=== PATIENT | female | born 1995 | race Caucasian/White ===

== ENCOUNTER 2024-11-10 10:26 | Outpatient (AMB) | payer BC, SELFPAY ==
[2024-11-10 10:45] VITALS: BP 124/85; PULSE 95; RESP 18; TEMP 36.6; O2SAT 95; BMI 36.4
--- NOTE | 2024-11-10 10:45 | OBCLNT_ITS ---
Vital Signs 11/10/24 10:45 Height 1.65 m Height Method Stated Weight 99.337 kg Weight Measurement Method Standing Scale BMI 36.4 BP 124/85 H Blood Pressure Source Automatic Cuff Blood Pressure Location Left Upper Arm Position Sitting Respiration 18 Pulse 95 Pulse Source Monitor Temp 97.8 F Temp Source Oral Pulse Oximetry (%) 95 Oxygen Delivery Method Room Air Allergies/Home Meds Allergies & Medications Allergies No Known Allergies Allergy (Verified 11/10/24 10:46) Medication Reconciliation No Known Home Medications 11/10/24 [History Confirmed 11/10/24] Intake Visit Data Collection New Patient or Established: New Patient (never been to [facility]) Reason for Visit:: INITIAL CARE Seen by Clinical Staff ONLY (RN/MA): No Engineering Document Control Clerk Required: No Do You Feel Safe at Home: Yes Authorities Contacted: N/A PCP or OBGYN visit in last 3 months: Yes Hx Now: Yes Are you currently on any form of Control: No Pain Present Currently: No Pain Scale Used: Julio-Boswell/Numerical Pain scale:: 0 Smoking Status Smoking Status: Never smoker Questionnaires Covid-19 Vaccine Questionnaire Has patient been vacinated for Covid-19 Have you been vacinated for Covid-19: Yes PHQ-9 PHQ-2 Over the last 2 weeks, how often have you been bothered by any of the following problems? 1. Little interest or pleasure in doing things: not at all 2. Feeling down, depressed, or hopeless: not at all Total score: 0 PHQ-9 3. Trouble falling or staying asleep, or sleeping too much: Not at all 4. Feeling tired or having little energy: Not at all 5. Poor appetite or overeating: Not at all 6. Feeling bad about yourself - or that you are a failure or have let yourself or your family down: Not at all 7. Trouble concentrating on things, such as reading the newspaper or watching television: Not at all 8. Moving or speaking so slowly that other people could have noticed? - Or the opposite - being so fidgety or restless that you have been moving around a lot more than usual: not at all 9. Thoughts that you would be better off or of hurting yourself in some way: Not at all Total score: 0 Source: Developed by Morena SaavedraW. Mian, David Bess and colleagues, with an educational gaudencio from [employer]. Depression screen completed yes Social History Living Situation History Marital Status: Lives With: Family Housing: House Tobacco History Smoking Status: Never smoker Second Hand Smoke Exposure: No Alcohol History Alcohol Intake: Never Domestic Abuse History Do You Feel Safe at Home: Yes Past Medical History Past Medical History Have you ever been diagnosed with any of the following: History of Present Illness HPI Narrative The patient is a 29-year-old G1, P0 LMP 07/28/2024 EDC 05/06/2025 presents for new OB visit she also needs a Pap smear. She reports some mild cramping and nausea. She is otherwise doing well this . OB Ultrasound Indication Indication: Size, dates, viability OB Ultrasound Ultrasound technique: transvaginal Gestational sac assessment: Presence, location, size, shape: Live intrauterine with a crown-rump length of 9.42 cm corresponding to 15 weeks and 2 days. EDC by ultrasound 05/03/2025. OB Initial Visit OB Flowsheet OB Flowsheet Initial Weight: Not Recorded Date -?-?-?-?-?-?-?-?-?-?-?-?- EGA Weight Edema CTX Effacement BP Fundal ht Pres Dilation Effacement Station Visit Note Alb Glu FHR Mov 11/10/24 -?-?-?-?-?-?-?-?-?-?-?-?- 15w 2d 99.337 kg 124/85 New OB visit. Labs ordered Pap performed. Initial OB information given. Offered NIPT 140 Menstrual History Menstrual reliability: definite Flow: normal Menstrual regularity: regular Monthly: Yes Age at menarche: 13 On control pills at conception: No Associated symptoms (LMP): Reports nausea, fatigue and breast tenderness OB History : 2 Hx Total # of Abortions (Spontaneous & Elective): 1 # of Living Children: 0 Infection History & Risk Evaluation History of STDs: none Genetic Screening & History Genetic Screening/Teratology Counseling - Includes patient, baby's father, or anyone in either family with: 1. Patient's age 35 years or older as of estimated date of delivery: No 2. Thalassemia (Mongolian, Frisian, Mediterranean, or Background); MCV less than 80: No 3. Neural Tube Defect (Meningomyelocele, Spina Bifida, or Anencephaly): No 4. Congenital Heart Defect: No 5. Down Syndrome: No 6. Rolando-Sachs (Ashkenazi Hoahaoism, Cajun, Thai Tristanian): No 7. Shelley Disease (Ashkenazi Hoahaoism): No 8. Familial Dysautonomia (Ashkenazi Hoahaoism): No 9. Sickle Cell Disease or Trait (): No 10. Hemophilia or other blood disorders: No 11. Muscular Dystrophy: No 12. Cystic Fibrosis: No 13. Charlotte's Chorea: No 14. Mental Retardation/Autism: No 15. Other inherited genetic or chromosomal disorder: No 16. Maternal Metabolic Disorder (EG,TYPE 1 Diabetes, PKU): No 17. Patient or baby's father had a child with defects not listed above: No 18. Recurrent loss or a stillbirth: No 19. Medications (including supplements, vitamins, herbs or otc drugs)/illicit/recreational drugs/alcohol since last menstrual period: No 20. Any other: No Infection History 1. Live with someone with TB or exposed to TB: No 2. Rash or viral illness since last menstrual period: No 3. Hepatitis B,C: No Other (see comments) Source: [employer] Review of Systems Constitutional Constitutional: Reports fatigue Gastrointestinal Gastrointestinal: Reports nausea Endocrine Endocrine: Reports fatigue Assessment & Plan Diagnosis / Problem List (1) : Status: Acute Office Procedures OB Clinic LOC & Office Proc's Nursing/Assessment Patient Status: Initial/New Patient OB Clinic Nursing Assessment: Medication Reconciliation, Update PMH in EMR and Vital Signs OB Clinic Coordination of Care: Complex Care and Chronic Disease 1-5, Consent,records obtained, informed consent, Education Simp Pt/Fam, Lab and Imaging orders, Results/Orders obtained and Staff clarify orders Special Needs: Heart tones Miscellaneous Interventions: Blood/Urine Collection and Pelvic/Pap Smear Set up New Patient Charge New Patient Point Assignment: [id number] New Patient Point Charge: BULL RIVETER Level 5 (1159-[id number]) In Clinic Procedures Pap Smear: Yes Bedside Ultrasounds US Transvaginal at bedside: Yes UPWARD BOUND DIRECTOR: Papsmear Pap Smear Procedure Chaparone in room during procedure?: No Pre-op diagnosis general: Annual woman's exam Post-op diagnosis procedure note: Same Procedure Notes:: Pap with cotesting to HPV performed
== END 2024-11-10 11:38 | disposition home or self-care (01) ==
LOC: HODSOBC 10:26
PROVIDERS: Supervising Provider Obstetrics & Gynecology; Visit Provider Obstetrics & Gynecology
DX: Z34.82 Encounter for supervision of other normal pregnancy, second trimester (principal); Z3A.15 15 weeks gestation of pregnancy
CPT/HCPCS: 76817; 99205; Q0091; G0463

== ENCOUNTER → 2024-11-10 | Outpatient (CLI) | payer BC, SELFPAY ==
[2024-11-10 12:45] LABS: Collection Type, Urine Clean Catch
[2024-11-10 12:57] LABS: Basophils % (Auto) 0 % (0-2.5); Eosinophils % (Auto) 0 % (0-10); Hematocrit 34.2 % (36.0-46.0); Immature Granulocytes % (Auto) 0 % (0-0); Immature Granulocytes Auto 0.02 Thou/mm3 (0.00-0.00); Lymphocytes % (Auto) 34 % (10-50); Mean Corpuscular HGB Conc 35.1 g/dl (31.0-37.0); Mean Corpuscular Hemoglobin 31.8 pg (25.0-35.0); Mean Corpuscular Volume 91 fL (80-100); Monocytes # (Auto) 0.5 Thou/mm3 (0.0-0.8); Monocytes % (Auto) 6 % (0-12); Neutrophils # (Auto) 5.3 Thou/mm3 (1.8-7.7); Neutrophils % (Auto) 60 % (37-80); Nucleated Red Blood Cell % 0 /100 WBC (0); Platelet Count 379 Thou/mm3 (140-440); RDW Standard Deviation 43.1 fL (36.4-46.3); Red Blood Count 3.77 Miln/mm3 (4.00-5.20); White Blood Count 8.9 Thou/mm3 (3.6-11.0)
[2024-11-10 13:01] LABS: Amorphous Crystals,Urine Present (Absent); Bilirubin,Urine Negative (Negative); Blood,Urine Negative (Negative); Clarity,Urine Turbid (Clear/Hazy); Color,Urine Yellow (Lt Yel-Yel); Glucose, Urine Negative (Negative); Ketones,Urine Negative (Negative); Leukocyte Esterase,Urine Negative (Negative); Nitrite,Urine Negative (Negative); Protein,Urine Trace (Neg - Trace); RBC,Urine 2 /hpf (0-3); Squamous Epithelial Cell,Urine 21 /hpf (0-5); Urobilinogen,Urine Negative mg/dL (0.0-1.0); WBC,Urine 9 /hpf (0-5)
[2024-11-10 13:18] LABS: Glucose Estimated Average 97 mg/dL (80-131)
[2024-11-10 13:36] LABS: Syphilis Nonreactive (Nonreactive)
[2024-11-10 14:00] LABS: Hepatitis B Surface Antigen Non Reactive (Non React); Hepatitis C Antibody Non Reactive (Non React); Rubella, IgG Antibody Reactive (Immune)
[2024-11-10 14:27] LABS: HIV (1&2) Antibody Rapid Non-Reactive
[2024-11-10 16:47] LABS: Chlamydia trachomatis PCR Negative (Not Detect); Neisseria Gonorrhoeae DNA PCR Negative (Not Detect); Trichomonas Negative (Negative)
== END | disposition home or self-care (01) ==
PROVIDERS: PCP Family Medicine
DX: Z34.90 Encounter for supervision of normal pregnancy, unspecified, unspecified trimester (principal)
CPT/HCPCS: 36415; 81001; 83036; 85025; 86703; 86762; 86780; 86803; 86850; 86900; 86901; 87086; 87340; 87491; 87591; 87661

== ENCOUNTER 2024-12-08 15:14 | Outpatient (AMB) | payer BC, SELFPAY ==
--- NOTE | 2024-12-08 15:41 | OBCLNT_ITS ---
Vital Signs 12/08/24 15:42 Height 1.65 m Height Method Stated Weight 99.507 kg Weight Measurement Method Standing Scale BMI 36.5 BP 121/82 Blood Pressure Source Automatic Cuff Blood Pressure Location Left Upper Arm Position Sitting Respiration 18 Pulse 78 Pulse Source Monitor Temp 97.2 F Temp Source Oral Pulse Oximetry (%) 98 Oxygen Delivery Method Room Air Allergies/Home Meds Allergies & Medications Allergies No Known Allergies Allergy (Verified 12/08/24 15:44) Medication Reconciliation No Known Home Medications 11/10/24 [History Confirmed 12/08/24] Intake Visit Data Collection New Patient or Established: Established Patient (seen at [facility] within 3 years) Reason for Visit:: OBC Seen by Clinical Staff ONLY (RN/MA): No Ventilated Rib Fitter Required: No Do You Feel Safe at Home: Yes Authorities Contacted: N/A PCP or OBGYN visit in last 3 months: Yes Date of Last PCP or OBGYN visit: 11/10/24 Hx Now: Yes Are you currently on any form of Control: No Pain Present Currently: No Pain Scale Used: Julio-Boswell/Numerical Pain scale:: 0 Smoking Status Smoking Status: Never smoker Questionnaires Covid-19 Vaccine Questionnaire Has patient been vacinated for Covid-19 Have you been vacinated for Covid-19: Yes PHQ-9 PHQ-2 Over the last 2 weeks, how often have you been bothered by any of the following problems? 1. Little interest or pleasure in doing things: not at all 2. Feeling down, depressed, or hopeless: not at all Total score: 0 PHQ-9 3. Trouble falling or staying asleep, or sleeping too much: Not at all 4. Feeling tired or having little energy: Not at all 5. Poor appetite or overeating: Not at all 6. Feeling bad about yourself - or that you are a failure or have let yourself or your family down: Not at all 7. Trouble concentrating on things, such as reading the newspaper or watching television: Not at all 8. Moving or speaking so slowly that other people could have noticed? - Or the opposite - being so fidgety or restless that you have been moving around a lot more than usual: not at all 9. Thoughts that you would be better off or of hurting yourself in some way: Not at all Total score: 0 If you checked off any problems, how difficult have these problems made it for you to do your work, take care of things at home, or get along with other people?: not difficult at all Source: Developed by Drs. Jose Rodríguez, Morena Pappas, David Bses and colleagues, with an educational gaudencio from [employer] Depression screen completed yes Social History Living Situation History Marital Status: Lives With: Family Housing: House Housing Other:: The patient works as an at an [employer]. FOB present Tobacco History Smoking Status: Never smoker Second Hand Smoke Exposure: No Alcohol History Alcohol Intake: Never Domestic Abuse History Do You Feel Safe at Home: Yes History of Present Illness HPI Narrative The patient is a 29-year-old G1, P0 presents for obstetrical care. Care OB Visit Log OB Flowsheet Initial Weight: Not Recorded Date -?-?-?-?-?-?-?-?-?-?-?-?- EGA Weight BP Alb Glu CTX Pres Fundal ht FHR Mov Dilation Station Effacement Hx Notes Visit Note 11/10/24 -?-?-?-?-?-?-?-?-?-?-?-?- 15w 2d 99.337 kg 124/85 140 New OB visit. Labs ordered Pap performed. Initial OB information given. Offered NIPT 12/08/24 -?-?-?-?-?-?-?-?-?-?-?-?- 19w 2d 99.507 kg 121/82 145 +FM. Anxious about miscarriage. No LOF. Desires US in [place] ANDREW Calculator Estimated Delivery Date Method Current WG Current Estimate 05/02/25 Ultrasound #1 19w 2d Other Estimates 05/04/25 LMP (Certain) 19w 0d Comments: 29-year-old G1, P0 LMP 07/28/2024 labs O+\antibody negative\rubella immune\RPR nonreactive\HIV negative\hepatitis B surface antigen negative\HIV negative\hepatitis C negative\urine culture negative\GC negative\chlamydia negative. Pap within normal limits with negative HPV. Specific Issue/Plans Patient lives in [place]. BMI of 37. Notes Visit Date: 11/10/24 Last Updated by: Tere Sarabia (OB Clinic)MD New OB visit. LMP 07/28/2024. EDC 05/06/2025. First ultrasound 15-2/7 weeks and an EDC of 05/03/2025. Patient has vaginismus and is in a difficult Pap and pelvic exam. Office Procedures OB Clinic LOC & Office Proc's Nursing/Assessment Patient Status: Established Patient OB Clinic Nursing Assessment: Medication Reconciliation, Update PMH in EMR and Vital Signs OB Clinic Coordination of Care: Consent,records obtained, informed consent, Lab and Imaging orders, Results/Orders obtained and Staff clarify orders Special Needs: Heart tones Established Patient Charge Established Patient Point Assignment: 95 Established Patient Point Charge: EP Level 3 (80-115) Assessment & Plan Diagnosis / Problem List (1) : Status: Acute Qualifiers: Weeks of gestation: 19 weeks Qualified Code(s): Z3A.19 - 19 weeks gest ation of (2) Obesity affecting : Status: Acute Qualifiers: Obesity type affecting : other obesity due to excess calories Trimester: second trimester Qualified Code(s): O99.212 - Obesity complicating , second trimester; E66.09 - Other obesity due to excess calories Assessment and Plan: For level [address] Matos in [place].
[2024-12-08 15:42] VITALS: BP 121/82; PULSE 78; RESP 18; TEMP 36.2; O2SAT 98; BMI 36.5
== END 2024-12-08 16:20 | disposition home or self-care (01) ==
LOC: HODSOBC 15:14
PROVIDERS: PCP Family Medicine; Referring Provider Family Medicine; Supervising Provider Obstetrics & Gynecology; Visit Provider Obstetrics & Gynecology
DX: O09.892 Supervision of other high risk pregnancies, second trimester (principal); Z3A.19 19 weeks gestation of pregnancy; O99.212 Obesity complicating pregnancy, second trimester
CPT/HCPCS: 99213; G0463

== ENCOUNTER 2025-01-04 09:06 | Outpatient (AMB) | payer BC, SELFPAY ==
--- NOTE | 2025-01-04 09:09 | AMB.OBVISIT ---
Vital Signs 01/04/25 09:14 Height 1.65 m Height Method Stated Weight 98.883 kg Weight Measurement Method Standing Scale BMI 36.3 BP 119/76 Blood Pressure Source Automatic Cuff Blood Pressure Location Left Upper Arm Position Sitting Respiration 16 Pulse 71 Pulse Source Monitor Temp 97.6 F Temp Source Oral Pulse Oximetry (%) 98 Oxygen Delivery Method Room Air Allergies/Home Meds Allergies & Medications Allergies No Known Allergies Allergy (Verified 01/04/25 09:16) Medication Reconciliation No Known Home Medications 11/10/24 [History Confirmed 01/04/25] Intake Visit Data Collection New Patient or Established: Established Patient (seen at [facility] within 3 years) Reason for Visit:: CARE Seen by Clinical Staff ONLY (RN/MA): No Telecommunications Manager Required: No Do You Feel Safe at Home: Yes Authorities Contacted: N/A PCP or OBGYN visit in last 3 months: No Hx Now: Yes Are you currently on any form of Control: No Pain Present Currently: No Pain Scale Used: Julio-Boswell/Numerical Pain scale:: 0 Smoking Status Smoking Status: Never smoker Questionnaires Covid-19 Vaccine Questionnaire Has patient been vacinated for Covid-19 Have you been vacinated for Covid-19: Yes PHQ-9 PHQ-2 Over the last 2 weeks, how often have you been bothered by any of the following problems? 1. Little interest or pleasure in doing things: not at all 2. Feeling down, depressed, or hopeless: not at all Total score: 0 PHQ-9 3. Trouble falling or staying asleep, or sleeping too much: Not at all 4. Feeling tired or having little energy: Not at all 5. Poor appetite or overeating: Not at all 6. Feeling bad about yourself - or that you are a failure or have let yourself or your family down: Not at all 7. Trouble concentrating on things, such as reading the newspaper or watching television: Not at all 8. Moving or speaking so slowly that other people could have noticed? - Or the opposite - being so fidgety or restless that you have been moving around a lot more than usual: not at all 9. Thoughts that you would be better off or of hurting yourself in some way: Not at all Total score: 0 Source: Developed by Morena Saavedra.W. Mian, David Bess and colleagues, with an educational gaudencio from [employer]. 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 FOB present Tobacco History Smoking Status: Never smoker Second Hand Smoke Exposure: No Alcohol History Alcohol Intake: Never Domestic Abuse History Do You Feel Safe at Home: Yes History of Present Illness HPI Narrative Patient is a 29-year-old G1, P0 presents for care. She does drive in from [place]. Care OB Visit Log OB Flowsheet Initial Weight: Not Recorded Date <del>?</del> EGA Weight BP Alb Glu CTX Pres Fundal ht FHR Mov Dilation Station Effacement Hx Notes Visit Note 11/10/24 <del>?</del> 15w 2d 99.337 kg 124/85 140 New OB visit. Labs ordered Pap performed. Initial OB information given. Offered NIPT 12/08/24 <del>?</del> 19w 2d 99.507 kg 121/82 145 +FM. Anxious about miscarriage. No LOF. Desires US in [place] 01/04/25 <del>?</del> 23w 1d 98.883 kg 119/76 147 active Plus movement no loss of fluids no vaginal bleeding Need ultrasound report from structural survey on chart ANDREW Calculator Estimated Delivery Date Method Current WG Current Estimate 05/02/25 Ultrasound #1 23w 1d Other Estimates 05/04/25 LMP (Certain) 22w 6d Expected Delivery Route/Plan Patient has vaginismus Difficult pelvic exam and Pap. Wants to go natural in labor. Specific Issue/Plans Patient lives in [place]. BMI of 37. labs O+/antibody negative rubella immune//RPR nonreactive/hepatitis B surface antigen negative hep C negative//HIV negative/Pap normal GC negative /Chlamydia negative/NIPT 46 XY Notes Visit Date: 01/04/25 Last Updated by: Tere Sarabia (OB Clinic)MD Went to [facility] [place] about a week ago for some chills. Patient felt hot. She had no documented fevers. Sounds like they sarthak labs and gave her IV fluids and sent her home. I have no records for this visit. Visit Date: 11/10/24 Last Updated by: Tere Sarabia (OB Clinic)MD New OB visit. LMP 07/28/2024. EDC 05/06/2025. First ultrasound 15-2/7 weeks and an EDC of 05/03/2025. Patient has vaginismus and is in a difficult Pap and pelvic exam. Office Procedures OB Clinic LOC & Office Proc's Nursing/Assessment Patient Status: Established Patient OB Clinic Nursing Assessment: Medication Reconciliation, Update PMH in EMR and Vital Signs OB Clinic Coordination of Care: Complex Care and Chronic Disease 1-5, Consent,records obtained, informed consent, Education Simp Pt/Fam, Lab and Imaging orders, Results/Orders obtained and Staff clarify orders Special Needs: Heart tones Established Patient Charge Established Patient Point Assignment: 135 Established Patient Point Charge: EP Level 4 (120-155)
[2025-01-04 09:14] VITALS: BP 119/76; PULSE 71; RESP 16; TEMP 36.4; O2SAT 98; BMI 36.3
== END 2025-01-04 09:38 | disposition home or self-care (01) ==
LOC: HODSOBC 09:06
PROVIDERS: PCP Family Medicine; Referring Provider Family Medicine; Supervising Provider Obstetrics & Gynecology; Visit Provider Obstetrics & Gynecology
DX: Z34.02 Encounter for supervision of normal first pregnancy, second trimester (principal); Z3A.23 23 weeks gestation of pregnancy
CPT/HCPCS: 99214; G0463

== ENCOUNTER 2025-02-02 13:38 | Outpatient (AMB) | payer BC, SELFPAY ==
[2025-02-02 13:55] VITALS: BP 119/76; PULSE 83; RESP 16; TEMP 36.5; O2SAT 96; BMI 36.8
--- NOTE | 2025-02-02 13:55 | AMB.OBVISIT ---
Vital Signs 02/02/25 13:55 Height 1.65 m Height Method Stated Weight 100.414 kg Weight Measurement Method Standing Scale BMI 36.8 BP 119/76 Blood Pressure Source Automatic Cuff Blood Pressure Location Left Upper Arm Position Sitting Respiration 16 Pulse 83 Pulse Source Monitor Temp 97.7 F Temp Source Oral Pulse Oximetry (%) 96 Oxygen Delivery Method Room Air Allergies/Home Meds Allergies & Medications Allergies No Known Allergies Allergy (Verified 02/02/25 13:57) Medication Reconciliation No Known Home Medications 11/10/24 [History Confirmed 02/02/25] Intake Visit Data Collection New Patient or Established: Established Patient (seen at [facility] within 3 years) Reason for Visit:: CARE Seen by Clinical Staff ONLY (RN/MA): No Culture Room Worker Required: No Do You Feel Safe at Home: Yes Authorities Contacted: N/A PCP or OBGYN visit in last 3 months: Yes Hx Now: Yes Are you currently on any form of Control: No Pain Present Currently: No Pain Scale Used: Julio-Boswell/Numerical Pain scale:: 0 Smoking Status Smoking Status: Never smoker Questionnaires Covid-19 Vaccine Questionnaire Has patient been vacinated for Covid-19 Have you been vacinated for Covid-19: Yes PHQ-9 PHQ-2 Over the last 2 weeks, how often have you been bothered by any of the following problems? 1. Little interest or pleasure in doing things: not at all 2. Feeling down, depressed, or hopeless: not at all Total score: 0 PHQ-9 3. Trouble falling or staying asleep, or sleeping too much: Not at all 4. Feeling tired or having little energy: Not at all 5. Poor appetite or overeating: Not at all 6. Feeling bad about yourself - or that you are a failure or have let yourself or your family down: Not at all 7. Trouble concentrating on things, such as reading the newspaper or watching television: Not at all 8. Moving or speaking so slowly that other people could have noticed? - Or the opposite - being so fidgety or restless that you have been moving around a lot more than usual: not at all 9. Thoughts that you would be better off or of hurting yourself in some way: Not at all Total score: 0 Source: Developed by Morena SaavedraW. Mian, David Bess and colleagues, with an educational gaudencio from [employer]. 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 FOB present Tobacco History Smoking Status: Never smoker Second Hand Smoke Exposure: No Alcohol History Alcohol Intake: Never Domestic Abuse History Do You Feel Safe at Home: Yes History of Present Illness HPI Narrative 30 y/o who presents for [facility] Care OB Visit Log OB Flowsheet Initial Weight: Not Recorded Date <del>?</del> EGA Weight BP Alb Glu CTX Pres Fundal ht FHR Mov Dilation Station Effacement Hx Notes Visit Note 11/10/24 <del>?</del> 15w 2d 99.337 kg 124/85 140 New OB visit. Labs ordered Pap performed. Initial OB information given. Offered NIPT 12/08/24 <del>?</del> 19w 2d 99.507 kg 121/82 145 +FM. Anxious about miscarriage. No LOF. Desires US in [place] 01/04/25 <del>?</del> 23w 1d 98.883 kg 119/76 147 active Plus movement no loss of fluids no vaginal bleeding Need ultrasound report from structural survey on chart 02/02/25 <del>?</del> 27w 2d 100.414 kg 119/76 145 active +FM, No UCs or LOF Normal Level II US on chart ANDREW Calculator Estimated Delivery Date Method Current WG Current Estimate 05/02/25 Ultrasound #1 28w 0d Other Estimates 05/04/25 LMP (Certain) 27w 5d Expected Delivery Route/Plan Patient has vaginismus Difficult pelvic exam and Pap. Wants to go natural in labor. Specific Issue/Plans Patient lives in [place]. BMI of 37. labs O+/antibody negative rubella immune//RPR nonreactive/hepatitis B surface antigen negative hep C negative/HIV negative/Pap normal/ GC negative /Chlamydia negative/NIPT 46 XY Normal Level II US Dr Matos at 22 weeks on 12/30/24 One hour GCT 102 at [facility] Notes Visit Date: 02/02/25 Last Updated by: Tere Sarabia (OB Clinic)MD GCT and Level II US WNL Visit Date: 01/04/25 Last Updated by: Tere Sarabia (OB Clinic)MD Went to [facility] about a week ago for some chills. Patient felt hot. She had no documented fevers. Sounds like they sarthak labs and gave her IV fluids and sent her home. I have no records for this visit. Visit Date: 11/10/24 Last Updated by: Tere Sarabia (OB Clinic)MD New OB visit. LMP 07/28/2024. EDC 05/06/2025. First ultrasound 15-2/7 weeks and an EDC of 05/03/2025. Patient has vaginismus and is in a difficult Pap and pelvic exam. Office Procedures OB Clinic LOC & Office Proc's Nursing/Assessment Patient Status: Established Patient OB Clinic Nursing Assessment: Medication Reconciliation, Update PMH in EMR and Vital Signs OB Clinic Coordination of Care: Complex Care and Chronic Disease 1-5, Consent,records obtained, informed consent, Education Simp Pt/Fam, Lab and Imaging orders, Results/Orders obtained and Staff clarify orders Special Needs: Heart tones Established Patient Charge Established Patient Point Assignment: 135 Established Patient Point Charge: EP Level 4 (120-155)
== END 2025-02-02 14:40 | disposition home or self-care (01) ==
LOC: HODSOBC 13:38
PROVIDERS: PCP Family Medicine; Referring Provider Family Medicine; Supervising Provider Obstetrics & Gynecology; Visit Provider Obstetrics & Gynecology
DX: Z34.82 Encounter for supervision of other normal pregnancy, second trimester (principal); Z3A.27 27 weeks gestation of pregnancy
CPT/HCPCS: 99214; G0463

== ENCOUNTER 2025-03-02 09:08 | Outpatient (AMB) | payer BC, SELFPAY ==
[2025-03-02 09:15] VITALS: BP 117/78; PULSE 79; RESP 17; TEMP 36.6; O2SAT 97; BMI 37.3
--- NOTE | 2025-03-02 09:15 | OBCLNT_ITS ---
Vital Signs 03/02/25 09:15 Height 1.65 m Height Method Measured Weight 101.775 kg Weight Measurement Method Standing Scale BMI 37.3 BP 117/78 Blood Pressure Source Automatic Cuff Blood Pressure Location Right Upper Arm Position Sitting Respiration 17 Pulse 79 Pulse Source Monitor Temp 97.8 F Temp Source Temporal Artery Scan Pulse Oximetry (%) 97 Oxygen Delivery Method Room Air Allergies/Home Meds Allergies & Medications Allergies No Known Allergies Allergy (Verified 03/02/25 09:15) Medication Reconciliation No Known Home Medications 11/10/24 [History Confirmed 03/02/25] Intake Visit Data Collection New Patient or Established: Established Patient (seen at [facility] within 3 years) Reason for Visit:: OBC Consent obtained for Telemed Visit: No Seen by Clinical Staff ONLY (RN/MA): No Geriatric Assistant Required: No Do You Feel Safe at Home: Yes Authorities Contacted: N/A PCP or OBGYN visit in last 3 months: Yes Date of Last PCP or OBGYN visit: 02/02/25 Hx Now: Yes Are you currently on any form of Control: No Pain Present Currently: No Pain Scale Used: Julio-Boswell/Numerical Pain scale:: 0 Smoking Status Smoking Status: Never smoker Questionnaires Covid-19 Vaccine Questionnaire Has patient been vacinated for Covid-19 Have you been vacinated for Covid-19: Yes PHQ-9 PHQ-2 Over the last 2 weeks, how often have you been bothered by any of the following problems? 1. Little interest or pleasure in doing things: not at all PHQ-9 8. Moving or speaking so slowly that other people could have noticed? - Or the opposite - being so fidgety or restless that you have been moving around a lot more than usual: not at all Source: Developed by Drs. Jose Rodríguez, Morena Pappas, David Bess and colleagues, with an educational gaudencio from [employer]. 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 FOB present Tobacco History Smoking Status: Never smoker Second Hand Smoke Exposure: No Alcohol History Alcohol Intake: Never Domestic Abuse History Do You Feel Safe at Home: Yes Care OB Visit Log OB Flowsheet Initial Weight: Not Recorded Date -?-?-?-?-?-?-?-?-?-?-?-?- EGA Weight BP Alb Glu CTX Pres Fundal ht FHR Mov Dilation Station Effacement Hx Notes Visit Note 11/10/24 -?-?-?-?-?-?-?-?-?-?-?-?- 15w 2d 99.337 kg 124/85 140 New OB visit. Labs ordered Pap performed. Initial OB information given. Offered NIPT 12/08/24 -?-?-?-?-?-?-?-?-?-?-?-?- 19w 2d 99.507 kg 121/82 145 +FM. Anxious about miscarriage. No LOF. Desires US in [place] 01/04/25 -?-?-?-?-?-?-?-?-?-?-?-?- 23w 1d 98.883 kg 119/76 147 active Plus movement no loss of fluids no vaginal bleeding Need ultraso und report from structural survey on chart 02/02/25 -?-?-?-?-?-?-?-?-?-?-?-?- 27w 2d 100.414 kg 119/76 145 active +FM, No UCs or LOF Normal Level II US on chart 03/02/25 -?-?-?-?-?-?-?-?-?-?-?-?- 31w 2d 101.775 kg 117/78 absent 33 143 active +FM, No LOF or VB US [address] Matos 3 lbs 7 oz, 99%ile ANDREW Calculator Estimated Delivery Date Method Current WG Current Estimate 05/02/25 Ultrasound #1 31w 6d Other Estimates 05/04/25 LMP (Certain) 31w 4d Expected Delivery Route/Plan Patient has vaginismus Difficult pelvic exam and Pap. Wants to go natural in labor. Specific Issue/Plans Patient lives in [place]. BMI of 37. labs O+/antibody negative rubella immune//RPR nonreactive/hepatitis B surface antigen negative/ hep C negative/HIV negative/Pap normal/ GC negative /Chlamydia negative/NIPT 46 XY Normal Level II US Dr Matos at 22 weeks on 12/30/24 One hour GCT 102 at [facility] Notes Visit Date: 03/02/25 Last Updated by: Tere Sarabia (OB Clinic), Big baby. 99 %ile. Has F/u Appt with Dr Matos Visit Date: 02/02/25 Last Updated by: Tere Sarabia (OB Clinic)MD GCT and Level II US WNL Visit Date: 01/04/25 Last Updated by: Tere Sarabia (OB Clinic)MD Went to [facility] ER about a week ago for some chills. Patient felt hot. She had no documented fevers. Sounds like they sarthak labs and gave her IV fluids and sent her home. I have no records for this visit. Visit Date: 11/10/24 Last Updated by: Tere Sarabia (OB Clinic)MD New OB visit. LMP 07/28/2024. EDC 05/06/2025. First ultrasound 15-2/7 weeks and an EDC of 05/03/2025. Patient has vaginismus and is in a difficult Pap and pelvic exam. Office Procedures OB Clinic LOC & Office Proc's Nursing/Assessment Patient Status: Established Patient OB Clinic Nursing Assessment: Medication Reconciliation, Update PMH in EMR and Vital Signs OB Clinic Coordination of Care: Complex Care and Chronic Disease 1-5, Consent,records obtained, informed consent, Education Simp Pt/Fam and Results/Orders obtained Special Needs: Heart tones Established Patient Charge Established Patient Point Assignment: 110 Established Patient Point Charge: EP Level 3 (80-115)
== END 2025-03-02 10:39 | disposition home or self-care (01) ==
LOC: HODSOBC 09:08
PROVIDERS: Supervising Provider Obstetrics & Gynecology; Visit Provider Obstetrics & Gynecology
DX: O09.893 Supervision of other high risk pregnancies, third trimester (principal); O34.63 Maternal care for abnormality of vagina, third trimester; N94.2 Vaginismus; O36.63X0 Maternal care for excessive fetal growth, third trimester, not applicable or unspecified; Z3A.31 31 weeks gestation of pregnancy
CPT/HCPCS: 99213; G0463

== ENCOUNTER 2025-03-16 11:00 | Outpatient (AMB) | payer BC, SELFPAY ==
[2025-03-16 14:11] VITALS: BP 120/75; PULSE 74; RESP 16; TEMP 36.2; O2SAT 98; BMI 37.7
--- NOTE | 2025-03-16 14:11 | OBCLNT_ITS ---
Vital Signs 03/16/25 14:11 Height 1.65 m Height Method Stated Weight 102.625 kg Weight Measurement Method Standing Scale BMI 37.7 BP 120/75 Blood Pressure Source Automatic Cuff Blood Pressure Location Left Upper Arm Position Sitting Respiration 16 Pulse 74 Pulse Source Monitor Temp 97.2 F Temp Source Oral Pulse Oximetry (%) 98 Oxygen Delivery Method Room Air Allergies/Home Meds Allergies & Medications Allergies No Known Allergies Allergy (Verified 03/16/25 14:12) Medication Reconciliation No Known Home Medications 11/10/24 [History Confirmed 03/16/25] Intake Visit Data Collection New Patient or Established: Established Patient (seen at [facility] within 3 years) Reason for Visit:: OBC Seen by Clinical Staff ONLY (RN/MA): No Gynecological Assistant Required: No Do You Feel Safe at Home: Yes Authorities Contacted: N/A PCP or OBGYN visit in last 3 months: Yes Date of Last PCP or OBGYN visit: 03/02/25 Hx Now: Yes Are you currently on any form of Control: No Pain Present Currently: No Pain Scale Used: Julio-Boswell/Numerical Pain scale:: 0 Smoking Status Smoking Status: Never smoker Questionnaires Covid-19 Vaccine Questionnaire Has patient been vacinated for Covid-19 Have you been vacinated for Covid-19: Yes PHQ-9 PHQ-2 Over the last 2 weeks, how often have you been bothered by any of the following problems? 1. Little interest or pleasure in doing things: not at all 2. Feeling down, depressed, or hopeless: not at all Total score: 0 PHQ-9 3. Trouble falling or staying asleep, or sleeping too much: Not at all 4. Feeling tired or having little energy: Not at all 5. Poor appetite or overeating: Not at all 6. Feeling bad about yourself - or that you are a failure or have let yourself or your family down: Not at all 7. Trouble concentrating on things, such as reading the newspaper or watching television: Not at all 8. Moving or speaking so slowly that other people could have noticed? - Or the opposite - being so fidgety or restless that you have been moving around a lot more than usual: not at all 9. Thoughts that you would be better off or of hurting yourself in some way: Not at all Total score: 0 If you checked off any problems, how difficult have these problems made it for you to do your work, take care of things at home, or get along with other people?: not difficult at all Source: Developed by Drs. Jose Rodríguez, Morena Pappas, David Bess and colleagues, with an educational gaudencio from [employer] 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 FOB present Tobacco History Smoking Status: Never smoker Second Hand Smoke Exposure: No Alcohol History Alcohol Intake: Never Domestic Abuse History Do You Feel Safe at Home: Yes Care OB Visit Log OB Flowsheet Initial Weight: Not Recorded Date -?-?-?-?-?-?-?-?-?-?-?-?- EGA Weight BP Alb Glu CTX Pres Fundal ht FHR Mov Dilation Station Effacement Hx Notes Visit Note 11/10/24 -?-?-?-?-?-?-?-?-?-?-?-?- 15w 2d 99.337 kg 124/85 140 New OB visit. Labs ordered Pap performed. Initial OB information given. Offered NIPT 12/08/24 -?-?-?-?-?-?-?-?-?-?-?-?- 19w 2d 99.507 kg 121/82 145 +FM. Anxious about miscarriage. No LOF. Desires US in [place] 01/04/25 -?-?-?-?-?-?-?-?-?-?-?-?- 23w 1d 98.883 kg 119/76 147 active Plus movement no loss of fluids no vaginal bleeding Need ultraso und report from structural survey on chart 02/02/25 -?-?-?-?-?-?-?-?-?-?-?-?- 27w 2d 100.414 kg 119/76 145 active +FM, No UCs or LOF Normal Level II US on chart 03/02/25 -?-?-?-?-?-?-?-?-?-?-?-?- 31w 2d 101.775 kg 117/78 absent 33 143 active +FM, No LOF or VB US [address] Matos 3 lbs 7 oz, 99%ile 03/16/25 -?-?-?-?-?-?-?-?-?-?-?-?- 33w 2d 102.625 kg 120/75 occasional 35 146 active + FM No UCs or LOF Big baby has F/u Dr Matos ANDREW Calculator Estimated Delivery Date Method Current WG Current Estimate 05/02/25 Ultrasound #1 34w 1d Other Estimates 05/04/25 LMP (Certain) 33w 6d Expected Delivery Route/Plan Patient has vaginismus Difficult pelvic exam and Pap. Wants to go natural in labor. Specific Issue/Plans Patient lives in [place]. BMI of 37. labs O+/antibody negative rubella immune//RPR nonreactive/hepatitis B surface antigen negative/ hep C negative/HIV negative/Pap normal/ GC negative /Chlamydia negative/NIPT 46 XY Normal Level II US Dr Maots at 22 weeks on 12/30/24 One hour GCT 102 at [facility] Notes Visit Date: 03/16/25 Last Updated by: Tere Sarabia ([facility])MD Will get Flu shot. Discussed TDap Visit Date: 03/02/25 Last Updated by: Tere Sarabia ([facility] Clinic)MD Big baby. 99 %ile. Has F/u Appt with Dr Matos Visit Date: 02/02/25 Last Updated by: Tere Sarabia ([facility])MD GCT and Level II US WNL Visit Date: 01/04/25 Last Updated by: Tere Sarabia ([facility] Clinic)MD Went to [facility] ER about a week ago for some chills. Patient felt hot. She had no documented fevers. Sounds like they sarthak labs and gave her IV fluids and sent her home. I have no records for this visit. Visit Date: 11/10/24 Last Updated by: Tere Sarabia (OB Clinic)MD New OB visit. LMP 07/28/2024. EDC 05/06/2025. First ultrasound 15-2/7 weeks and an EDC of 05/03/2025. Patient has vaginismus and is in a difficult Pap and pelvic exam. Office Procedures OB Clinic LOC & Office Proc's Nursing/Assessment Patient Status: Established Patient OB Clinic Nursing Assessment: Medication Reconciliation, Update PMH in EMR and Vital Signs OB Clinic Coordination of Care: Education Complex Pt/Fam, Consent,records obtained, informed consent, Lab and Imaging orders and Staff clarify orders Special Needs: Heart tones Established Patient Charge Established Patient Point Assignment: 110 Established Patient Point Charge: EP Level 3 (80-115)
== END 2025-03-16 15:12 | disposition home or self-care (01) ==
LOC: HODSOBC 11:00
PROVIDERS: Supervising Provider Obstetrics & Gynecology; Visit Provider Obstetrics & Gynecology
DX: O09.893 Supervision of other high risk pregnancies, third trimester (principal); O36.63X0 Maternal care for excessive fetal growth, third trimester, not applicable or unspecified; O34.63 Maternal care for abnormality of vagina, third trimester; N94.2 Vaginismus; Z3A.33 33 weeks gestation of pregnancy
CPT/HCPCS: 99213; G0463

== ENCOUNTER 2025-03-30 10:00 | Outpatient (AMB) | payer BC, SELFPAY ==
--- NOTE | 2025-03-30 10:08 | OBCLNT_ITS ---
Vital Signs 03/30/25 10:09 Height 1.65 m Height Method Stated Weight 102.228 kg Weight Measurement Method Standing Scale BMI 37.5 BP 122/82 Blood Pressure Source Automatic Cuff Blood Pressure Location Left Upper Arm Position Sitting Respiration 16 Pulse 85 Pulse Source Monitor Temp 97.6 F Temp Source Oral Pulse Oximetry (%) 95 Oxygen Delivery Method Room Air Allergies/Home Meds Allergies & Medications Allergies No Known Allergies Allergy (Verified 03/30/25 10:09) Medication Reconciliation No Known Home Medications 11/10/24 [History Confirmed 03/30/25] Intake Visit Data Collection New Patient or Established: Established Patient (seen at [facility] within 3 years) Reason for Visit:: care Seen by Clinical Staff ONLY (RN/MA): No Deli Manager Required: No Do You Feel Safe at Home: Yes Authorities Contacted: N/A PCP or OBGYN visit in last 3 months: Yes Hx Now: Yes Are you currently on any form of Control: No Pain Present Currently: No Pain Scale Used: Julio-Boswell/Numerical Pain scale:: 0 Smoking Status Smoking Status: Never smoker Questionnaires Covid-19 Vaccine Questionnaire Has patient been vacinated for Covid-19 Have you been vacinated for Covid-19: Yes PHQ-9 PHQ-2 Over the last 2 weeks, how often have you been bothered by any of the following problems? 1. Little interest or pleasure in doing things: not at all 2. Feeling down, depressed, or hopeless: not at all Total score: 0 PHQ-9 3. Trouble falling or staying asleep, or sleeping too much: Not at all 4. Feeling tired or having little energy: Not at all 5. Poor appetite or overeating: Not at all 6. Feeling bad about yourself - or that you are a failure or have let yourself or your family down: Not at all 7. Trouble concentrating on things, such as reading the newspaper or watching television: Not at all 8. Moving or speaking so slowly that other people could have noticed? - Or the opposite - being so fidgety or restless that you have been moving around a lot more than usual: not at all 9. Thoughts that you would be better off or of hurting yourself in some way: Not at all Total score: 0 Source: Developed by Morena SaavedraW. Mian, David Bess and colleagues, with an educational gaudencio from [employer]. 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 Labs ordered Pap performed. Initial OB information given. Offered NIPT 12/08/24 -?-?-?-?-?-?-?-?-?-?-?-?- 19w 2d 99.507 kg 121/82 145 +FM. Anxious about miscarriage. No LOF. Desires US in [place] 01/04/25 -?-?-?-?-?-?-?--?-?-?-?-?- 23w 1d 98.883 kg 119/76 147 active Plus movement no loss of fluids no vaginal bleeding Need ultraso und report from structural survey on chart 02/02/25 -?-?-?-?-?-?-?-?-?-?-?-?- 27w 2d 100.414 kg 119/76 145 active +FM, No UCs or LOF Normal Level II US on chart 03/02/25 -?-?-?-?-?-?-?-?-?-?-?-?- 31w 2d 101.775 kg 117/78 absent 33 143 active +FM, No LOF or VB US [address] Matos 3 lbs 7 oz, 99%ile 03/16/25 -?-?-?-?-?-?-?-?-?-?-?-?- 33w 2d 102.625 kg 120/75 occasional 35 146 active + FM No UCs or LOF Big baby has F/u Dr Matos 03/30/25 -?-?-?-?-?-?-?-?-?-?-?-?- 35w 2d 102.228 kg 122/82 occasional cephalic 34 124 active Good movement. No contractions or loss of fluids. Has plan she will bring it next week. Baby was 6 pound s 03/23/[address] Matos's exam. At due date 8-07/08 to 9 pound baby. ANDREW Calculator Estimated Delivery Date Method Current WG Current Estimate 05/02/25 Ultrasound #1 35w 2d Other Estimates 05/04/25 LMP (Certain) 35w 0d Expected Delivery Route/Plan Patient has vaginismus Difficult pelvic exam and Pap. Wants to go natural in labor. Specific Issue/Plans Patient lives in [place]. BMI of 37. labs O+/antibody negative rubella immune//RPR nonreactive/hepatitis B surface antigen negative/ hep C negative/HIV negative/Pap normal/ GC negative /Chlamydia negative/NIPT 46 XY Normal Level II US Dr Matos at 22 weeks on 12/30/24 One hour GCT 102 at [facility] Notes Visit Date: 03/30/25 Last Updated by: Tere Sarabia ([facility])MD Patient will get Tdap today 6 weeks yeah 6 and 7 yeah Visit Date: 03/16/25 Last Updated by: Tere Sarabia ([facility])MD Will get Flu shot. Discussed TDap Visit Date: 03/02/25 Last Updated by: Tere Sarabia ([facility])MD Big baby. 99 %ile. Has F/u Appt with Dr Matos Visit Date: 02/02/25 Last Updated by: Tere [facility])MD GCT and Level II US WNL Visit Date: 01/04/25 Last Updated by: Tere Sarabia ([facility] Clinic)MD Went to [facility] ER about a week ago for some chills. Patient felt hot. She had no documented fevers. Sounds like they sarthak labs and gave her IV fluids and sent her home. I have no records for this visit. Visit Date: 11/10/24 Last Updated by: Tere Sarabia ([facility] Clinic)MD New OB visit. LMP 07/28/2024. EDC 05/06/2025. First ultrasound 15-2/7 weeks and an EDC of 05/03/2025. Patient has vaginismus and is in a difficult Pap and pelvic exam. Office Procedures OBC Clinic LOC & Office Proc's Nursing/Assessment Patient Status: Established Patient OB Clinic Nursing Assessment: Medication Reconciliation, Update PMH in EMR and Vital Signs OB Clinic Coordination of Care: Complex Care and Chronic Disease 1-5, Consent,records obtained, informed consent, Education Simp Pt/Fam, Lab and Imaging orders, Results/Orders obtained and Staff clarify orders Special Needs: Heart tones Established Patient Charge Established Patient Point Assignment: 135 Established Patient Point Charge: EP Level 4 (120-155) Assessment & Plan Diagnosis / Problem List (1) Obesity affecting : Status: Acute Qualifiers: Trimester: second trimester Obesity type affecting : other obesity due to excess calories Qualified Code(s): O99.212 - Obesity complicating , second trimester; E66.09 - Other obesity due to excess calories (2) : Status: Acute Qualifiers: Weeks of gestation: 35 weeks Qualified Code(s): Z3A.35 - 35 weeks gestation of
[2025-03-30 10:09] VITALS: BP 122/82; PULSE 85; RESP 16; TEMP 36.4; O2SAT 95; BMI 37.5
== END 2025-03-30 10:15 | disposition home or self-care (01) ==
LOC: HODSOBC 10:00
PROVIDERS: Supervising Provider Obstetrics & Gynecology; Visit Provider Obstetrics & Gynecology
DX: O09.893 Supervision of other high risk pregnancies, third trimester (principal); O99.213 Obesity complicating pregnancy, third trimester; Z3A.35 35 weeks gestation of pregnancy
CPT/HCPCS: 90715; 99214; G0463

== ENCOUNTER 2025-04-06 08:32 | Outpatient (AMB) | payer BC, SELFPAY ==
[2025-04-06 08:50] VITALS: BP 127/84; PULSE 60; RESP 14; TEMP 36.6; O2SAT 97; BMI 38.3
--- NOTE | 2025-04-06 08:50 | AMB.OBVISIT ---
Vital Signs 04/06/25 08:50 Height 1.65 m Height Method Stated Weight 104.496 kg Weight Measurement Method Standing Scale BMI 38.3 BP 127/84 Blood Pressure Source Automatic Cuff Blood Pressure Location Left Upper Arm Position Sitting Respiration 14 Pulse 60 Pulse Source Monitor Temp 97.8 F Temp Source Oral Pulse Oximetry (%) 97 Oxygen Delivery Method Room Air Allergies/Home Meds Allergies & Medications Allergies No Known Allergies Allergy (Verified 04/06/25 08:50) Medication Reconciliation No Known Home Medications 11/10/24 [History Confirmed 04/06/25] Intake Visit Data Collection New Patient or Established: Established Patient (seen at [facility] within 3 years) Reason for Visit:: CARE Seen by Clinical Staff ONLY (RN/MA): No 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 1. Little interest or pleasure in doing things: not at all 2. Feeling down, depressed, or hopeless: not at all Total score: 0 PHQ-9 3. Trouble falling or staying asleep, or sleeping too much: Not at all 4. Feeling tired or having little energy: Not at all 5. Poor appetite or overeating: Not at all 6. Feeling bad about yourself - or that you are a failure or have let yourself or your family down: Not at all 7. Trouble concentrating on things, such as reading the newspaper or watching television: Not at all 8. Moving or speaking so slowly that other people could have noticed? - Or the opposite - being so fidgety or restless that you have been moving around a lot more than usual: not at all 9. Thoughts that you would be better off or of hurting yourself in some way: Not at all Total score: 0 Source: Developed by Drs. Jose Rodríguez, Morena Pappas, David Bess and colleagues, with an educational gaudencio from [employer]. 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 FOB present Tobacco History Smoking Status: Never smoker Second Hand Smoke Exposure: No Alcohol History Alcohol Intake: Never Domestic Abuse History Do You Feel Safe at Home: Yes Care OB Visit Log OB Flowsheet Initial Weight: Not Recorded Date <del>?</del> EGA Weight BP Alb Glu CTX Pres Fundal ht FHR Mov Dilation Station Effacement Hx Notes Visit Note 11/10/24 <del>?</del> 15w 2d 99.337 kg 124/85 140 New OB visit. Labs ordered Pap performed. Initial OB information given. Offered NIPT 12/08/24 <del>?</del> 19w 2d 99.507 kg 121/82 145 +FM. Anxious about miscarriage. No LOF. Desires US in [place] 01/04/25 <del>?</del> 23w 1d 98.883 kg 119/76 147 active Plus movement no loss of fluids no vaginal bleeding Need ultrasound report from structural survey on chart 02/02/25 <del>?</del> 27w 2d 100.414 kg 119/76 145 active +FM, No UCs or LOF Normal Level II US on chart 03/02/25 <del>?</del> 31w 2d 101.775 kg 117/78 absent 33 143 active +FM, No LOF or VB US [address] Matos 3 lbs 7 oz, 99%ile 03/16/25 <del>?</del> 33w 2d 102.625 kg 120/75 occasional 35 146 active +FM No UCs or LOF Big baby has F/u Dr Matos 03/30/25 <del>?</del> 35w 2d 102.228 kg 122/82 occasional cephalic 34 124 active Good movement. No contractions or loss of fluids. Has plan she will bring it next week. Baby was 6 pounds 03/23/[address] Matos's exam. At due date 8-1/2 to 9 pound baby. 04/06/25 <del>?</del> 36w 2d 104.496 kg 127/84 occasional cephalic 32 145 active Good contractions no loss of fluids or Went to triage at [facility] for elevated blood pressure. Patient's was 130s over 140s over 80s. She was told this was normal. No labs done. ANDREW Calculator Estimated Delivery Date Method Current WG Current Estimate 05/02/25 Ultrasound #1 36w 2d Other Estimates 05/04/25 LMP (Certain) 36w 0d Expected Delivery Route/Plan Patient has vaginismus Difficult pelvic exam and Pap. Wants to go natural in labor. Specific Issue/Plans Patient lives in [place]. BMI of 37. labs O+/antibody negative rubella immune//RPR nonreactive/hepatitis B surface antigen negative/ hep C negative/HIV negative/Pap normal/ GC negative /Chlamydia negative/NIPT 46 XY Normal Level II US Dr Matos at 22 weeks on 12/30/24 One hour GCT 102 at [facility] Notes Visit Date: 04/06/25 Last Updated by: Tere Sarabia ([facility])MD Group B strep culture done Visit Date: 03/30/25 Last Updated by: Tere Sarabia ([facility])MD Patient will get Tdap today 6 weeks yeah 6 and 7 yeah Visit Date: 03/16/25 Last Updated by: Tere Sarabia ([facility])MD Will get Flu shot. Discussed TDap Visit Date: 03/02/25 Last Updated by: Tere Sarabia ([facility])MD Big baby. 99 %ile. Has F/u Appt with Dr Matos Visit Date: 02/02/25 Last Updated by: Tere Sarabia ([facility] Clinic)MD GCT and Level II US WNL Visit Date: 01/04/25 Last Updated by: Tere Sarabia ([facility] Clinic)MD Went to [facility] ER about a week ago for some chills. Patient felt hot. She had no documented fevers. Sounds like they sarthak labs and gave her IV fluids and sent her home. I have no records for this visit. Visit Date: 11/10/24 Last Updated by: Tere Sarabia ([facility] Clinic)MD New OB visit. LMP 07/28/2024. EDC 05/06/2025. First ultrasound 15-2/7 weeks and an EDC of 05/03/2025. Patient has vaginismus and is in a difficult Pap and pelvic exam. Office Procedures OBC Clinic LOC & Office Proc's Nursing/Assessment Patient Status: Established Patient OB Clinic Nursing Assessment: Medication Reconciliation, Update PMH in EMR and Vital Signs OB Clinic Coordination of Care: Complex Care and Chronic Disease 1-5, Education Complex Pt/Fam, Consent,records obtained, informed consent, Education Simp Pt/Fam, 1 Ins Authorization, Lab and Imaging orders, Results/Orders obtained and Staff clarify orders Special Needs: Heart tones Miscellaneous Interventions: Culture Specimen Collection Established Patient Charge Established Patient Point Assignment: 185 Established Patient Point Charge: EP Level 5 (160-above) Assessment & Plan Diagnosis / Problem List (1) : Status: Acute Qualifiers: Weeks of gestation: 36 weeks Qualified Code(s): Z3A.36 - 36 weeks gestation of Plan: Group B strep done. Order ultrasound for size next visit. (2) Obesity affecting : Status: Acute Qualifiers: Obesity type affecting : other obesity due to excess calories Trimester: second trimester Qualified Code(s): O99.212 - Obesity complicating , second trimester; E66.09 - Other obesity due to excess calories
== END 2025-04-06 09:24 | disposition home or self-care (01) ==
LOC: HODSOBC 08:32
PROVIDERS: Supervising Provider Obstetrics & Gynecology; Visit Provider Obstetrics & Gynecology
DX: O09.893 Supervision of other high risk pregnancies, third trimester (principal); O99.213 Obesity complicating pregnancy, third trimester; O34.63 Maternal care for abnormality of vagina, third trimester; N94.2 Vaginismus; Z3A.36 36 weeks gestation of pregnancy; Z36.85 Encounter for antenatal screening for Streptococcus B
CPT/HCPCS: 99215; G0463

== ENCOUNTER → 2025-04-12 | Outpatient (CLI) | payer BC, SELFPAY ==
--- NOTE | 2025-04-12 11:30 | XR_ITS ---
Examination: Complete OB ultrasound greater than 14 weeks Date and time of exam: April 12, 2025 1141 hours INDICATIONS: Diagnosis obesity complicating Findings: Viable intrauterine single fetus with single amniotic sac presentation cephalic. Cardiac motion 131 bpm Placenta posterior grade 3. Umbilical cord insertion 3 vessels seen. Amniotic fluid index 11.9 cm spine maternal left. Cervix 3.0 cm. Right ovary 3.9 cm arterial flow. Left ovary 4.5 cm arterial flow. Composite estimated gestational age based on BPD, head circumference, abdominal circumference, femur length is 37 weeks 5 days, estimated weight 3304 g. Survey of intracranial anatomy, spinal anatomy, abdominal anatomy, four-chamber heart performed with no abnormalities identified. Impression: Viable intrauterine gestation in cephalic presentation.
== END | disposition home or self-care (01) ==
PROVIDERS: PCP Licensed Vocational Nurse; Referring Provider Obstetrics & Gynecology; Visit Provider Obstetrics & Gynecology
DX: O99.212 Obesity complicating pregnancy, second trimester (principal); Z3A.37 37 weeks gestation of pregnancy
CPT/HCPCS: 76805

== ENCOUNTER 2025-04-13 09:01 | Outpatient (AMB) | payer BC, SELFPAY ==
--- NOTE | 2025-04-13 09:04 | OBCLNT_ITS ---
Vital Signs 04/13/25 09:08 Height 1.65 m Height Method Stated Weight 105.404 kg Weight Measurement Method Standing Scale BMI 38.7 BP 125/88 H Blood Pressure Source Automatic Cuff Blood Pressure Location Left Upper Arm Position Sitting Respiration 18 Pulse 75 Pulse Source Monitor Temp 97.8 F Temp Source Oral Pulse Oximetry (%) 98 Oxygen Delivery Method Room Air Allergies/Home Meds Allergies & Medications Allergies No Known Allergies Allergy (Verified 04/13/25 09:04) Medication Reconciliation No Known Home Medications 11/10/24 [History Confirmed 04/13/25] Intake Visit Data Collection New Patient or Established: Established Patient (seen at [facility] within 3 years) Reason for Visit:: OBC Seen by Clinical Staff ONLY (RN/MA): No Gift Wrapper Required: No Do You Feel Safe at Home: Yes Authorities Contacted: N/A PCP or OBGYN visit in last 3 months: Yes Date of Last PCP or OBGYN visit: 03/30/25 Hx Now: Yes Are you currently on any form of Control: No Pain Present Currently: No Pain Scale Used: Julio-Boswell/Numerical Pain scale:: 0 Smoking Status Smoking Status: Never smoker Questionnaires Covid-19 Vaccine Questionnaire Has patient been vacinated for Covid-19 Have you been vacinated for Covid-19: No PHQ-9 PHQ-2 Over the last 2 weeks, how often have you been bothered by any of the following problems? 1. Little interest or pleasure in doing things: not at all 2. Feeling down, depressed, or hopeless: not at all Total score: 0 PHQ-9 3. Trouble falling or staying asleep, or sleeping too much: Not at all 4. Feeling tired or having little energy: Not at all 5. Poor appetite or overeating: Not at all 6. Feeling bad about yourself - or that you are a failure or have let yourself or your family down: Not at all 7. Trouble concentrating on things, such as reading the newspaper or watching television: Not at all 8. Moving or speaking so slowly that other people could have noticed? - Or the opposite - being so fidgety or restless that you have been moving around a lot more than usual: not at all 9. Thoughts that you would be better off or of hurting yourself in some way: Not at all Total score: 0 If you checked off any problems, how difficult have these problems made it for you to do your work, take care of things at home, or get along with other people?: not difficult at all Source: Developed by Drs. Jose Rodríguez, Morena Pappas, David Bess and colleagues, with an educational gaudencio from [employer]. Depression screen completed yes Social History Living Situation History Marital Status: Single Lives With: Family Housing: House Housing Other:: The patient works as an at an [employer]). FOB present Tobacco History Smoking Status: Never smoker Second Hand Smoke Exposure: No Alcohol History Alcohol Intake: Never Domestic Abuse History Do You Feel Safe at Home: Yes Care OB Visit Log OB Flowsheet Initial Weight: Not Recorded Date -?-?-?-?-?-?-?-?-?-?-?-?- EGA Weight BP Alb Glu CTX Pres Fundal ht FHR Mov Dilation Station Effacement Hx Notes Visit Note 11/10/24 -?-?-?-?-?-?-?-?-?-?-?-?- 15w 2d 99.337 kg 124/85 140 New OB visit. Labs ordered Pap performed. Initial OB information given. Offered NIPT 12/08/24 -?-?-?-?-?-?-?-?-?-?-?-?- 19w 2d 99.507 kg 121/82 145 +FM. Anxious about miscarriage. No LOF. Desires US in [place] 01/04/25 -?-?-?-?-?-?-?-?-?-?-?-?- 23w 1d 98.883 kg 119/76 147 active Plus movement no loss of fluids no vaginal bleeding Need ultraso und report from structural survey on chart 02/02/25 -?-?-?-?-?-?-?-?-?-?-?-?- 27w 2d 100.414 kg 119/76 145 active +FM, No UCs or LOF Normal Level II US on chart 03/02/25 -?-?-?-?-?-?-?-?-?-?-?-?- 31w 2d 101.775 kg 117/78 absent 33 143 active +FM, No LOF or VB US [address] Matos 3 lbs 7 oz, 99%ile 03/16/25 -?-?-?-?-?-?-?-?-?-?-?-?- 33w 2d 102.625 kg 120/75 occasional 35 146 active + FM No UCs or LOF Big baby has F/u Dr Matos 03/30/25 -?-?-?-?-?-?-?-?-?-?-?-?- 35w 2d 102.228 kg 122/82 occasional cephalic 34 124 active Good movement. No contractions or loss of fluids. Has plan she will bring it next week. Baby was 6 pound s 03/23/[address] Matos's exam. At due date to 9 pound baby. 04/06/25 -?-?-?-?-?-?-?-?-?-?-?-?- 36w 2d 104.496 kg 127/84 occasional cephalic 32 145 active Good contractions no loss of fluids or Went to triage at [facility] for elevated blood pressure. Patient's was 130s over 140s over 80s. She was told this was normal. No labs done. 04/13/25 -?-?-?-?-?-?-?-?-?-?-?-?- 37w 2d 105.404 kg 125/88 occasional cephalic 36 134 active Good movement no contractions no loss of fluids. Blood pressure was initially elevated at 141/89. After patient rested a repeat was 125/88. Preeclamptic signs and symptoms were given. ANDREW Calculator Estimated Delivery Date Method Current WG Current Estimate 05/02/25 Ultrasound #1 37w 2d Other Estimates 05/04/25 LMP (Certain) 37w 0d Expected Delivery Route/Plan Patient has vaginismus Difficult pelvic exam and Pap. Wants to go natural in labor. Specific Issue/Plans Patient lives in [place]. BMI of 37. labs O+/antibody negative rubella immune/RPR nonreactive/hepatitis B surface antigen negative/ hep C negative/HIV negative/Pap normal/ GC negative /Chlamydia negative/NIPT 46 XY Normal Level II US Dr Matos at 22 weeks on 12/30/24 One hour GCT 102 at [facility] Positive group B strep Notes Visit Date: 04/13/25 Last Updated by: Tere Sarabia (OB Clinic)MD Positive group B strep culture. Patient told she will need antibiotics in labor. The patient has a plan and she showed it to me on her phone. It is very reasonable. She prefers to not have an epidural and to walk in early labor. She prefers delayed cord clamping she prefers skin to skin for at least an hour after if possible. She prefers to have the nurses review pain options but think she will decline epidural. She might be open to fentanyl or nitrous oxide. Visit Date: 04/06/25 Last Updated by: Tere Sarabia (OB Clinic)MD Group B strep culture done Visit Date: 03/30/25 Last Updated by: Tere Sarabia ([facility] Clinic)MD Patient will get Tdap today 6 weeks yeah 6 and 7 yeah Visit Date: 03/16/25 Last Updated by: Tere Sarabia ([facility] Clinic)MD Will get Flu shot. Discussed TDap Visit Date: 03/02/25 Last Updated by: Tere Sarabia (OB Clinic)MD Big baby. 99 %ile. Has F/u Appt with Dr Matos Visit Date: 02/02/25 Last Updated by: Tere Sarabia (OB Clinic)MD GCT and Level II US WNL Visit Date: 01/04/25 Last Updated by: Tere Sarabia (OB Clinic)MD Went to [facility] ER about a week ago for some chills. Patient felt hot. She had no documented fevers. Sounds like they sarthak labs and gave her IV fluids and sent her home. I have no records for this visit. Visit Date: 11/10/24 Last Updated by: Tere Sarabia (OB Clinic)MD New OB visit. LMP 07/28/2024. EDC 05/06/2025. First ultrasound 15-2/7 weeks and an EDC of 05/03/2025. Patient has vaginismus and is in a difficult Pap and pelvic exam. Office Procedures OBC Clinic LOC & Office Proc's Nursing/Assessment Patient Status: Established Patient OB Clinic Nursing Assessment: Medication Reconciliation, Update PMH in EMR and Vital Signs OB Clinic Coordination of Care: Complex Care and Chronic Disease 1-5, Education Complex Pt/Fam, Consent,records obtained, informed consent, Lab and Imaging orders, Results/Orders obtained and Staff clarify orders Special Needs: Heart tones Miscellaneous Interventions: Blood/Urine Collection Established Patient Charge Established Patient Point Assignment: 170 Established Patient Point Charge: EP Level 5 (160-above) Assessment & Plan Diagnosis / Problem List (1) Obesity affecting : Status: Acute Qualifiers: Trimester: second trimester Obesity type affecting : other obesity due to excess calories Qualified Code(s): O99.212 - Obesity complicating , second trimester; E66.09 - Other obesity due to excess calories Plan: Kick counts and labor precautions reviewed. (2) : Status: Acute Qualifiers: Weeks of gestation: 37 weeks Qualified Code(s): Z3A.37 - 37 weeks gestation of (3) Mother positive for group B Streptococcus colonization: Status: Acute Plan: Patient was told she will need antibiotics in labor. Additional Plan Follow Up: 1 Week
[2025-04-13 09:08] VITALS: BP 125/88; PULSE 75; RESP 18; TEMP 36.6; O2SAT 98; BMI 38.7
== END 2025-04-13 10:11 | disposition home or self-care (01) ==
LOC: HODSOBC 09:01
PROVIDERS: Supervising Provider Obstetrics & Gynecology; Visit Provider Obstetrics & Gynecology
DX: O09.893 Supervision of other high risk pregnancies, third trimester (principal); O99.213 Obesity complicating pregnancy, third trimester; O99.820 Streptococcus B carrier state complicating pregnancy; Z3A.37 37 weeks gestation of pregnancy
CPT/HCPCS: 99213; 99215; G0463

== ENCOUNTER 2025-04-20 13:02 | Outpatient (AMB) | payer BC, SELFPAY ==
--- NOTE | 2025-04-20 13:09 | OBCLNT_ITS ---
Vital Signs 04/20/25 13:11 Height 1.65 m Height Method Stated Weight 107.615 kg Weight Measurement Method Standing Scale BMI 39.5 BP 129/86 H Blood Pressure Source Automatic Cuff Blood Pressure Location Right Upper Arm Position Sitting Respiration 17 Pulse 60 Pulse Source Monitor Temp 98.1 F Temp Source Temporal Artery Scan Pulse Oximetry (%) 97 Oxygen Delivery Method Room Air Allergies/Home Meds Allergies & Medications Allergies No Known Allergies Allergy (Verified 04/20/25 13:09) Medication Reconciliation No Known Home Medications 11/10/24 [History Confirmed 04/20/25] Intake Visit Data Collection New Patient or Established: Established Patient (seen at [facility] within 3 years) Reason for Visit:: OBC Seen by Clinical Staff ONLY (RN/MA): No Jackhammer Operator Required: No Do You Feel Safe at Home: Yes Authorities Contacted: N/A PCP or OBGYN visit in last 3 months: Yes Date of Last PCP or OBGYN visit: 04/13/25 Hx Now: Yes Are you currently on any form of Control: No Pain Present Currently: No Pain Scale Used: Julio-Boswell/Numerical Pain scale:: 0 Smoking Status Smoking Status: Never smoker Questionnaires Covid-19 Vaccine Questionnaire Has patient been vacinated for Covid-19 Have you been vacinated for Covid-19: No PHQ-9 PHQ-2 Over the last 2 weeks, how often have you been bothered by any of the following problems? 1. Little interest or pleasure in doing things: not at all 2. Feeling down, depressed, or hopeless: not at all Total score: 0 PHQ-9 3. Trouble falling or staying asleep, or sleeping too much: Not at all 4. Feeling tired or having little energy: Not at all 5. Poor appetite or overeating: Not at all 6. Feeling bad about yourself - or that you are a failure or have let yourself or your family down: Not at all 7. Trouble concentrating on things, such as reading the newspaper or watching television: Not at all 8. Moving or speaking so slowly that other people could have noticed? - Or the opposite - being so fidgety or restless that you have been moving around a lot more than usual: not at all 9. Thoughts that you would be better off or of hurting yourself in some way: Not at all Total score: 0 If you checked off any problems, how difficult have these problems made it for you to do your work, take care of things at home, or get along with other people?: not difficult at all Source: Developed by Drs. Jose Rodríguez, Morena Pappas, David Bess and colleagues, with an educational gaudencio from [employer]. Depression screen completed yes Social History Living Situation History Marital Status: Lives With: Family Housing: House Housing Other:: The patient works as an at an [employer]. FOB present Tobacco History Smoking Status: Never smoker Second Hand Smoke Exposure: No Alcohol History Alcohol Intake: Never Domestic Abuse History Do You Feel Safe at Home: Yes Care OB Visit Log OB Flowsheet Initial Weight: Not Recorded Date -?-?-?-?-?-?-?-?-?--?-?-?- EGA Weight BP Alb Glu CTX Pres Fundal ht FHR Mov Dilation Station Effacement Hx Notes Visit Note 11/10/24 -?-?-?-?-?-?-?-?-?-?-?-?- 15w 2d 99.337 kg 124/85 140 New OB visit. Labs ordered Pap performed. Initial OB information given. Offered NIPT 12/08/24 -?-?-?-?-?-?-?-?-?-?-?-?- 19w 2d 99.507 kg 121/82 145 +FM. Anxious about miscarriage. No LOF. Desires US in [place] 01/04/25 -?-?-?-?-?-?-?-?-?-?-?-?- 23w 1d 98.883 kg 119/76 147 active Plus movement no loss of fluids no vaginal bleeding Need ultraso und report from structural survey on chart 02/02/25 -?-?-?-?-?-?-?-?-?-?-?-?- 27w 2d 100.414 kg 119/76 145 active +FM, No UCs or LOF Normal Level II US on chart 03/02/25 -?-?-?-?-?-?-?-?-?-?-?-?- 31w 2d 101.775 kg 117/78 absent 33 143 active +FM, No LOF or VB US [address] Matos 3 lbs 7 oz, 99%ile 03/16/25 -?-?-?-?-?-?-?-?-?-?-?-?- 33w 2d 102.625 kg 120/75 occasional 35 146 active + FM No UCs or LOF Big baby has F/u Dr Matos 03/30/25 -?-?-?-?-?-?-?-?-?-?-?-?- 35w 2d 102.228 kg 122/82 occasional cephalic 34 124 active Good movement. No contractions or loss of fluids. Has plan she will bring it next week. Baby was 6 pound s 03/23/[address] Matos's exam. At due date to 9 pound baby. 04/06/25 -?-?-?-?-?-?-?-?-?-?-?-?- 36w 2d 104.496 kg 127/84 occasional cephalic 32 145 active Good contractions no loss of fluids or Went to triage at [facility] for elevated blood pressure. Patient's was 130s over 140s over 80s. She was told this was normal. No labs done. 04/13/25 -?-?-?-?-?-?-?-?-?-?-?-?- 37w 2d 105.404 kg 125/88 occasional cephalic 36 134 active Good movement no contractions no loss of fluids. Blood pressure was initially elevated at 141/89. After patient rested a repeat was 125/88. Preeclamptic signs and symptoms were given. 04/20/25 -?-?-?-?-?-?-?-?-?-?-?-?- 38w 2d 107.615 kg 129/86 occasional cephalic 38 134 active Good movement. Denies leaking or bleeding. Occasional contraction. Increased pres sure and ligament pain. Denies headache or blurred vision. Discussed kick count twice a day. Discussed danger signs symptoms ER precautions. Reviewed PIH signs and symptoms. Return in a week OB check ANDREW Calculator Estimated Delivery Date Method Current WG Current Estimate 05/02/25 Ultrasound #1 38w 2d Other Estimates 05/04/25 LMP (Certain) 38w 0d Expected Delivery Route/Plan Patient has vaginismus Difficult pelvic exam and Pap. Wants to go natural in labor. Specific Issue/Plans Patient lives in [place]. BMI of 37. labs O+/antibody negative rubella immune/RPR nonreactive/hepatitis B surface antigen negative/ hep C negative/HIV negative/Pap normal/ GC negative /Chlamydia negative/NIPT 46 XY Normal Level II US Dr Matos at 22 weeks on 12/30/24 One hour GCT 102 at [facility] Positive group B strep Notes Visit Date: 04/13/25 Last Updated by: Tere Sarabia ([facility] Clinic)MD Positive group B strep culture. Patient told she will need antibiotics in labor. The patient has a plan and she showed it to me on her phone. It is very reasonable. She prefers to not have an epidural and to walk in early labor. She prefers delayed cord clamping she prefers skin to skin for at least an hour after if possible. She prefers to have the nurses review pain options but think she will decline epidural. She might be open to fentanyl or nitrous oxide. Visit Date: 04/06/25 Last Updated by: Tere Sarabia ([facility])MD Group B strep culture done Visit Date: 03/30/25 Last Updated by: Tere Sarabia ([facility] Clinic)MD Patient will get Tdap today 6 weeks yeah 6 and 7 yeah Visit Date: 03/16/25 Last Updated by: Tere Sarabia ([facility])MD Will get Flu shot. Discussed TDap Visit Date: 03/02/25 Last Updated by: Tere Sarabia ([facility] Clinic)MD Big baby. 99 %ile. Has F/u Appt with Dr Matos Visit Date: 02/02/25 Last Updated by: Tere Sarabia ([facility] Clinic)MD GCT and Level II US WNL Visit Date: 01/04/25 Last Updated by: Tere Sarabia ([facility] Clinic)MD Went to [facility] ER about a week ago for some chills. Patient felt hot. She had no documented fevers. Sounds like they sarthak labs and gave her IV fluids and sent her home. I have no records for this visit. Visit Date: 11/10/24 Last Updated by: Tere Sarabia (OB Clinic)MD New OB visit. LMP 07/28/2024. EDC 05/06/2025. First ultrasound 15-2/7 weeks and an EDC of 05/03/2025. Patient has vaginismus and is in a difficult Pap and pelvic exam. Office Procedures OBC Clinic LOC & Office Proc's Nursing/Assessment Patient Status: Established Patient OB Clinic Nursing Assessment: Medication Reconciliation, Update PMH in EMR and Vital Signs OB Clinic Coordination of Care: Complex Care and Chronic Disease 1-5, Education Complex Pt/Fam, Consent,records obtained, informed consent and Staff clarify orders Special Needs: Heart tones Established Patient Charge Established Patient Point Assignment: 120 Established Patient Point Charge: EP Level 4 (120-155) Assessment & Plan Diagnosis / Problem List (1) Encounter for supervision of high risk in third trimester, antepartum: Status: Acute Plan Discussed labor precautions. Kick count twice a day. Comfort measures for third trimester discomforts. Discussed danger signs symptoms and ER precautions with parameters. We reviewed PIH signs and symptoms discussed use. Raspberry tea and other things to help cause contractions. Return in a week OB check Additional Plan Follow Up: 1 Week (obc)
[2025-04-20 13:11] VITALS: BP 129/86; PULSE 60; RESP 17; TEMP 36.7; O2SAT 97; BMI 39.5
== END 2025-04-20 13:38 | disposition home or self-care (01) ==
LOC: HODSOBC 13:02
PROVIDERS: Supervising Provider Advanced Practice Midwife; Visit Provider Advanced Practice Midwife
DX: O09.93 Supervision of high risk pregnancy, unspecified, third trimester (principal); Z3A.38 38 weeks gestation of pregnancy
CPT/HCPCS: 99214; G0463

== ENCOUNTER 2025-04-27 10:06 | Outpatient (AMB) | payer BC, SELFPAY ==
--- NOTE | 2025-04-27 10:26 | OBCLNT_ITS ---
Vital Signs 04/27/25 10:34 Height 1.65 m Height Method Stated Weight 108.068 kg Weight Measurement Method Standing Scale BMI 39.6 BP 125/86 H Blood Pressure Source Automatic Cuff Blood Pressure Location Left Upper Arm Position Sitting Respiration 16 Pulse 59 L Pulse Source Monitor Temp 97.7 F Temp Source Temporal Artery Scan Pulse Oximetry (%) 98 Oxygen Delivery Method Room Air Allergies/Home Meds Allergies & Medications Allergies No Known Allergies Allergy (Verified 04/27/25 10:37) Medication Reconciliation No Known Home Medications 11/10/24 [History Confirmed 04/27/25] Intake Visit Data Collection New Patient or Established: Established Patient (seen at [facility] within 3 years) Reason for Visit:: OBC Seen by Clinical Staff ONLY (RN/MA): No Fertilizer Applicator Required: No Do You Feel Safe at Home: Yes Authorities Contacted: N/A PCP or OBGYN visit in last 3 months: Yes Hx Now: Yes Are you currently on any form of Control: No Pain Present Currently: No Pain Scale Used: Julio-Boswell/Numerical Pain scale:: 0 Smoking Status Smoking Status: Never smoker Immunizations Flu Vaccine in the Last 12 Months: No Questionnaires Covid-19 Vaccine Questionnaire Has patient been vacinated for Covid-19 Have you been vacinated for Covid-19: Yes PHQ-9 PHQ-2 Over the last 2 weeks, how often have you been bothered by any of the following problems? 1. Little interest or pleasure in doing things: not at all 2. Feeling down, depressed, or hopeless: not at all Total score: 0 PHQ-9 3. Trouble falling or staying asleep, or sleeping too much: Not at all 4. Feeling tired or having little energy: Not at all 5. Poor appetite or overeating: Not at all 6. Feeling bad about yourself - or that you are a failure or have let yourself or your family down: Not at all 7. Trouble concentrating on things, such as reading the newspaper or watching television: Not at all 8. Moving or speaking so slowly that other people could have noticed? - Or the opposite - being so fidgety or restless that you have been moving around a lot more than usual: not at all 9. Thoughts that you would be better off or of hurting yourself in some way: Not at all Total score: 0 If you checked off any problems, how difficult have these problems made it for you to do your work, take care of things at home, or get along with other people?: not difficult at all Source: Developed by Drs. Jose Rodríguez, Morena Pappas, David Bess and colleagues, with an educational gaudencio from [employer]. Social History Living Situation History Lives With: Family Housing: House Housing Other:: The patient works as an at an [employer] program. FOB present Tobacco History Smoking Status: Never smoker Second Hand Smoke Exposure: No Alcohol History Alcohol Intake: Never Domestic Abuse History Do You Feel Safe at Home: Yes Care OB Visit Log OB Flowsheet Initial Weight: Not Recorded Date -?-?-?-?-?-?-?-?-?-?-?-?- EGA Weight BP Alb Glu CTX Pres Fundal ht FHR Mov Dilation Station Effacement Hx Notes Visit Note 11/10/24 -?-?-?-?-?-?-?-?-?-?-?-?- 15w 2d 99.337 kg 124/85 140 New OB visit. Labs ordered Pap performed. Initial OB information given. Offered NIPT 12/08/24 -?-?-?-?-?-?-?-?-?-?-?-?- 19w 2d 99.507 kg 121/82 145 +FM. Anxious about miscarriage. No LOF. Desires US in [place] 01/04/25 -?-?-?-?-?-?-?-?-?-?-?-?- 23w 1d 98.883 kg 119/76 147 active Plus movement no loss of fluids no vaginal bleeding Need ultraso und report from structural survey on chart 02/02/25 -?-?-?-?-?-?-?-?-?-?-?-?- 27w 2d 100.414 kg 119/76 145 active +FM, No UCs or LOF Normal Level II US on chart 03/02/25 -?-?-?-?-?-?-?-?-?-?-?-?- 31w 2d 101.775 kg 117/78 absent 33 143 active +FM, No LOF or VB US [address] Matos 3 lbs 7 oz, 99%ile 03/16/25 -?-?-?-?-?-?-?-?-?-?-?-?- 33w 2d 102.625 kg 120/75 occasional 35 146 active + FM No UCs or LOF Big baby has F/u Dr Matos 03/30/25 -?-?-?-?-?-?-?-?-?-?-?-?- 35w 2d 102.228 kg 122/82 occasional cephalic 34 124 active Good movement. No contractions or loss of fluids. Has plan she will bring it next week. Baby was 6 pound s 03/23/[address] Matos's exam. At due date to 9 pound baby. 04/06/25 -?-?-?-?-?-?-?-?-?-?-?-?- 36w 2d 104.496 kg 127/84 occasional cephalic 32 145 active Good contractions no loss of fluids or Went to triage at [facility] for elevated blood pressure. Patient's was 130s over 140s over 80s. She was told this was normal. No labs done. 04/13/25 -?-?-?-?-?-?-?-?-?-?-?-?- 37w 2d 105.404 kg 125/88 occasional cephalic 36 134 active Good movement no contractions no loss of fluids. Blood pressure was initially elevated at 141/89. After patient rested a repeat was 125/88. Preeclamptic signs and symptoms were given. 04/20/25 -?-?-?-?-?-?-?-?-?-?-?-?- 38w 2d 107.615 kg 129/86 occasional cephalic 38 134 active Good movement. Denies leaking or bleeding. Occasional contraction. Increased pressure and ligament pain. Denies headache or blurred vision. Discussed kick count twice a day. Discussed danger signs symptoms ER precautions. Reviewed PIH signs and symptoms. Return in a week OB check 04/27/25 -?-?-?-?-?-?-?-?-?-?-?-?- 39w 2d 108.068 kg 125/86 occasional cephalic 38 135 active 1.5 -1 50 Increased pressure. Increased cramping. Denies leaking or bleeding. Reports good movement. Discussed kick c ount. Labor precautions. Increase fluids. Continue vitamins. Discussed ER precautions return a week OB check ANDREW Calculator Estimated Delivery Date Method Current WG Current Estimate 05/02/25 Ultrasound #1 39w 2d Other Estimates 05/04/25 LMP (Certain) 39w 0d Expected Delivery Route/Plan Patient has vaginismus Difficult pelvic exam and Pap. Wants to go natural in labor. Specific Issue/Plans Patient lives in [place]. BMI of 37. labs O+/antibody negative rubella immune/RPR nonreactive/hepatitis B surface antigen negative/ hep C negative/HIV negative/Pap normal/ GC negative /Chlamydia negative/NIPT 46 XY Normal Level II US Dr Matos at 22 weeks on 12/30/24 One hour GCT 102 at [facility] Positive group B strep Notes Visit Date: 04/27/25 Last Updated by: Magi Cavazos, CNM O+,abs-, rpr;;nr, rub imm, hbsag-,hiv-,HC-, GC/CT-PAP wnl Visit Date: 04/13/25 Last Updated by: Tere Sarabia (OB Clinic)MD Positive group B strep culture. Patient told she will need antibiotics in labor. The patient has a plan and she showed it to me on her phone. It is very reasonable. She prefers to not have an epidural and to walk in early labor. She prefers delayed cord clamping she prefers skin to skin for at least an hour after if possible. She prefers to have the nurses review pain options but think she will decline epidural. She might be open to fentanyl or nitrous oxide. Visit Date: 04/06/25 Last Updated by: Tere Sarabia (OB Clinic)MD Group B strep culture done Visit Date: 03/30/25 Last Updated by: Tere Sarabia (OB Clinic)MD Patient will get Tdap today 6 weeks yeah 6 and 7 yeah Visit Date: 03/16/25 Last Updated by: Tere Sarabia ([facility] Clinic)MD Will get Flu shot. Discussed TDap Visit Date: 03/02/25 Last Updated by: Tere Sarabia (OB Clinic)MD Big baby. 99 %ile. Has F/u Appt with Dr Matos Visit Date: 02/02/25 Last Updated by: Tere Sarabia (OB Clinic)MD GCT and Level II US WNL Visit Date: 01/04/25 Last Updated by: Tere Sarabia (OB Clinic)MD Went to [facility] ER about a week ago for some chills. Patient felt hot. She had no documented fevers. Sounds like they sarthak labs and gave her IV fluids and sent her home. I have no records for this visit. Visit Date: 11/10/24 Last Updated by: Tere Sarabia (OB Clinic)MD New OB visit. LMP 07/28/2024. EDC 05/06/2025. First ultrasound 15-2/7 weeks and an EDC of 05/03/2025. Patient has vaginismus and is in a difficult Pap and pelvic exam. Office Procedures OBC Clinic LOC & Office Proc's Nursing/Assessment Patient Status: Established Patient OB Clinic Nursing Assessment: Medication Reconciliation, Update PMH in EMR and Vital Signs OB Clinic Coordination of Care: Complex Care and Chronic Disease 1-5, Education Complex Pt/Fam, Consent,records obtained, informed consent, Lab and Imaging orders, Results/Orders obtained and Staff clarify orders Special Needs: Heart tones Established Patient Charge Established Patient Point Assignment: 140 Established Patient Point Charge: EP Level 4 (120-155) Assessment & Plan Diagnosis / Problem List (1) Encounter for supervision of high risk in third trimester, antepartum: Status: Acute Plan Discussed labor precautions. Kick count twice a day. Reviewed GBS positive and treatment during labor. Discussed's ER precautions and return in a week OB check Additional Plan Follow Up: 1 Week (obc)
[2025-04-27 10:34] VITALS: BP 125/86; PULSE 59; RESP 16; TEMP 36.5; O2SAT 98; BMI 39.6
== END 2025-04-27 11:00 | disposition home or self-care (01) ==
LOC: HODSOBC 10:06
PROVIDERS: Supervising Provider Advanced Practice Midwife; Visit Provider Advanced Practice Midwife
DX: O09.893 Supervision of other high risk pregnancies, third trimester (principal); O99.820 Streptococcus B carrier state complicating pregnancy; Z3A.39 39 weeks gestation of pregnancy
CPT/HCPCS: 99214; G0463

== ENCOUNTER 2025-04-29 15:30 | Inpatient (IN) | payer BC, SELFPAY ==
[2025-04-29] VITALS (29 sets, daily range): BP systolic 124–159; BP diastolic 61–85; PULSE 59–82; RESP 18–98; TEMP 36.7; O2SAT 89–100; BMI 37.8
[2025-04-29 16:59] LABS: Basophils # (Auto) 0.0 Thou/mm3 (0.0-0.2); Basophils % (Auto) 0 % (0-2.5); Eosinophils # (Auto) 0.0 Thou/mm3 (0.0-0.5); Eosinophils % (Auto) 0 % (0-10); Hematocrit 33.2 % (36.0-46.0); Hemoglobin 11.3 g/dL (12.0-16.0); Immature Granulocytes Auto 0.04 Thou/mm3 (0.00-0.00); Lymphocytes # (Auto) 2.6 Thou/mm3 (1.0-4.8); Lymphocytes % (Auto) 25 % (10-50); Mean Corpuscular HGB Conc 34.0 g/dl (31.0-37.0); Mean Corpuscular Hemoglobin 31.1 pg (25.0-35.0); Mean Corpuscular Volume 92 fL (80-100); Monocytes # (Auto) 0.5 Thou/mm3 (0.0-0.8); Monocytes % (Auto) 5 % (0-12); Neutrophils # (Auto) 7.0 Thou/mm3 (1.8-7.7); Neutrophils % (Auto) 69 % (37-80); Nucleated Red Blood Cell # 0.00 Thou/mm3 (0.00-0.00); Nucleated Red Blood Cell % 0 /100 WBC (0); Platelet Count 285 Thou/mm3 (140-440); RDW Standard Deviation 48.2 fL (36.4-46.3); Red Blood Count 3.63 Miln/mm3 (4.00-5.20); White Blood Count 10.1 Thou/mm3 (3.6-11.0)
[2025-04-29 17:21] LABS: Alanine Aminotransferase 19 U/L (10-49); Albumin, Serum 4.1 gm/dL (3.5-5.0); Albumin/Globulin Ratio 1.7 (1.2-2.2); Alkaline Phosphatase 186 U/L (46-116); Anion Gap 12 (7-16); Aspartate Amino Transferase 31 U/L (0-34); BUN/Creatinine Ratio 13 Ratio (12-20); Bilirubin,Total 0.4 mg/dL (0.3-1.2); Blood Urea Nitrogen 8 mg/dL (9-23); Calcium 9.1 mg/dL (8.3-10.6); Calcium (Corrected) 9.1 mg/dL (8.5-10.1); Carbon Dioxide 21.3 mMol/L (20.0-31.0); Chloride 103 mMol/L (98-107); Creatinine (Component) 0.6 mg/dL (0.6-1.3); Globulin 2.4 gm/dL (2.3-3.5); Glucose 82 mg/dL (74-106); LDH (Lactate Dehydrogenase) 210 U/L (120-246); Osmolality,Calculated 269 (275-295); Potassium 4.2 mMol/L (3.4-5.1); Sodium 136 mMol/L (136-145); Total Protein 6.5 gm/dL (5.7-8.2); Uric Acid 4.4 mg/dL (3.1-7.8); eGFR > 60 See Note
[2025-04-29 17:29] LABS: Fibrinogen 568 mg/dL (175-375); INR 0.9 (0.9-1.3); Partial Thromboplastin Time 27.2 Seconds (22.0-36.0); Prothrombin Time 9.6 Seconds (9.0-12.2)
[2025-04-29 18:11] LABS: Collection Type, Urine Clean Catch
[2025-04-29 18:49] LABS: Bilirubin,Urine Negative (Negative); Blood,Urine Trace (Negative); Clarity,Urine Clear (Clear/Hazy); Color,Urine Lt-Yellow (Lt Yel-Yel); Glucose, Urine Negative (Negative); Ketones,Urine Negative (Negative); Leukocyte Esterase,Urine Positive (Negative); Nitrite,Urine Negative (Negative); PH,Urine 6.5 (5.0-7.0); Protein,Urine Negative (Neg - Trace); RBC,Urine 1 /hpf (0-3); Specific Gravity,Urine 1.011 (1.001-1.035); Squamous Epithelial Cell,Urine 18 /hpf (0-5); Urobilinogen,Urine Negative mg/dL (0.0-1.0); WBC,Urine 14 /hpf (0-5)
[2025-04-29 18:50] LABS: Creatinine,Random Urine 48 mg/dL (30-125); Protein Total, Random Urine 21 mg/dL (1-14)
[2025-04-29] MEDS: ACETAMINOPHEN 500 MG TABLET 1000 MG PO (19:05)
[2025-04-29] MEDS: RINGERS LACTATED 1000 ML 1,000 ML 125 ML IV (22:11)
[2025-04-29] MEDS: Ampicillin Inj 2,000 MG in SODIUM CHLORIDE 0.9% (POP) 100 ML 200 MG IV (22:12)
[2025-04-29 22:49] LABS: Basophils # (Auto) 0.0 Thou/mm3 (0.0-0.2); Basophils % (Auto) 0 % (0-2.5); Eosinophils # (Auto) 0.0 Thou/mm3 (0.0-0.5); Eosinophils % (Auto) 0 % (0-10); Hematocrit 33.9 % (36.0-46.0); Hemoglobin 11.5 g/dL (12.0-16.0); Immature Granulocytes Auto 0.05 Thou/mm3 (0.00-0.00); Lymphocytes # (Auto) 2.4 Thou/mm3 (1.0-4.8); Lymphocytes % (Auto) 21 % (10-50); Mean Corpuscular HGB Conc 33.9 g/dl (31.0-37.0); Mean Corpuscular Hemoglobin 30.9 pg (25.0-35.0); Mean Corpuscular Volume 91 fL (80-100); Monocytes # (Auto) 0.5 Thou/mm3 (0.0-0.8); Monocytes % (Auto) 4 % (0-12); Neutrophils # (Auto) 8.6 Thou/mm3 (1.8-7.7); Neutrophils % (Auto) 74 % (37-80); Nucleated Red Blood Cell # 0.00 Thou/mm3 (0.00-0.00); Nucleated Red Blood Cell % 0 /100 WBC (0); Platelet Count 326 Thou/mm3 (140-440); RDW Standard Deviation 47.9 fL (36.4-46.3); Red Blood Count 3.72 Miln/mm3 (4.00-5.20); White Blood Count 11.6 Thou/mm3 (3.6-11.0)
[2025-04-29 23:23] LABS: Syphilis Nonreactive (Nonreactive)
[2025-04-30] VITALS (163 sets, daily range): BP systolic 92–171; BP diastolic 53–92; PULSE 54–103; RESP 16–18; TEMP 36.7–37; O2SAT 83–100; BMI 37.8
--- NOTE | 2025-04-30 01:05 | PD.LDHP ---
Documentation for date of: 04/30/25 OB Labor/Induct. HPI History of Present Illness Chief complaint: Active labor : 1 Para: 0 Term pregnancies: 0 pregnancies: 0 Living children: 0 History of Abortions: Spontaneous and Elective: 0 History of Vaginal deliveries: 0 History of sections: No History of : No Date of last menstrual period: 07/28/24 ANDREW: 05/04/25 Gestational Age (weeks): 39 Gestational Age (days): 2 Gestational age based on last menstrual period: 39 History of present illness: The patient is a 30-year-old G1, P0 at 39-2/7 weeks all care uncomplicated with Dr. Flaquita Sarabia at the [facility] OB clinic who presented in early labor. She ambulated for approximately 2 hours and made change from 3 to 4-1/2 cm. The patient desires to go natural in labor and has a plan. She did have a few mildly elevated blood pressures in triage but none had to be treated with IV antihypertensives. She is a suspected large baby with approximately 8 to 9 pound estimated weight at due date. She is positive for group B strep. History of Present Dating criteria: LMP confirmed by 1st trimester US Adequate Care: Yes Ultrasounds: normal mid trimester US Obstetrical complications: none Medical complications: none Labs Maternal Blood Type: O Pos Labs: Positive: Rubella Titre and Group Beta Strep (Group B strep positive), Negative: RPR, Hepatitis B, HIV, Chlamydia and Gonorrhea and Unknown: Herpes Type 1, Herpes Type 2 and Covid-19 Past Medical History Surgical History SURGICAL: Negative Section Past Medical History Comments PMH COMMENT: No significant past medical history Patient's BMI is 38 Meds Home Medications and Allergies Home Medications ?Medication ?Instructions ?Recorded ?Confirmed ?Type No Known Home Medications 11/10/24 04/27/25 History Allergies Allergy/AdvReac Type Severity Reaction Status Date / Time No Known Allergies Allergy Verified 04/29/25 15:46 OB Exam Physical Exam Vital signs: Temp Pulse Resp BP Pulse Ox O2 Del Method 98.1 F 82 18 136/84 H 97 Room Air 04/29/25 15:38 04/30/25 00:07 04/29/25 15:38 04/30/25 00:07 04/29/25 19:01 04/29/25 15:38 Detailed Labor and Delivery Exam Dilation (cm): 4 Effacement (%): 80 Cervix position: mid station: -2 Consistency: medium Presentation: Vertex Membranes: intact monitor accelerations: 15x15 monitor decelerations: None jail variability: Moderate (11-25) Contraction frequency (min): Irregular OB Results Labs 04/29/25 22:42 04/29/25 16:37 Labs: Short CBC 04/29/25 04/29/25 Range/Units 16:37 22:42 WBC 10.1 11.6 H (3.6-11.0) Thou/mm3 Hgb 11.3 L 11.5 L (12.0-16.0) g/dL Hct 33.2 L 33.9 L (36.0-46.0) % Plt Count 285 326 D (140-440) Thou/mm3 BMP 04/29/25 16:37 Sodium 136 Potassium 4.2 Chloride 103 Carbon Dioxide 21.3 BUN 8 L Creatinine 0.6 Glucose 82 Calcium 9.1 Liver Function 04/29/25 Range/Units 16:37 Total Bilirubin 0.4 (0.3-1.2) mg/dL AST 31 (0-34) U/L ALT 19 (10-49) U/L Alkaline Phosphatase 186 H (46-116) U/L Albumin 4.1 (3.5-5.0) gm/dL Urine 04/29/25 Range/Units 16:45 Urine Color Lt-Yellow (Lt Yel-Yel) Urine Clarity Clear (Clear/Hazy) Urine pH 6.5 (5.0-7.0) Ur Specific Ermine 1.011 (1.001-1.035) Urine Protein Negative (Neg - Trace) Urine Glucose (UA) Negative (Negative) OB Assessment & Plan Assessment and Plan (1) Mother positive for group B Streptococcus colonization: Status: Acute Assessment and plan: On ampicillin (2) Obesity affecting : Status: Acute (3) Supervision of high risk in third trimester: Status: Acute Assessment and plan: Suspected 8-1/2 to 9 pound baby. Patient has plan and desires to go natural. The plan will be to check patient and encourage augmentation if she is not making adequate cervical change. Additional Plan Induction method: none Plan: anticipate NVD and GBS prophylaxis tx Additional Plan Comment: Add augmentation if patient stalls out in labor. (2) Obesity affecting Qualifiers: Trimester: second trimester Obesity type affecting : other obesity due to excess calories Qualified Code(s): O99.212 - Obesity complicating , second trimester; E66.09 - Other obesity due to excess calories
[2025-04-30] MEDS: Ampicillin Inj 1,000 MG in SODIUM CHLORIDE 0.9% (Popper) 50 ML 50 MG IV ×2 (02:37→07:01)
[2025-04-30] MEDS: RINGERS LACTATED 1000 ML 1,000 ML 125 ML IV ×3 (03:15→05:50)
--- NOTE | 2025-04-30 07:12 | ESPR_ITS ---
Documentation for date of: 04/30/25 OB Labor Progress Note Pain Control Pain control: epidural Pelvic Exam Dilation (cm): 9.5 Effacement (%): 100 station: 0 Amniotic membrane status: Ruptured Comments: Ruptured clear fluid 7:00 in the morning Contractions Monitor mode: External Contraction frequency: 4 Contraction pattern: Tetanic Contraction intensity: Moderate Status status: Category ll Assessment and Plan Assessment: active labor Plan OB labor note: continuous present management History of Present Illness HPI The patient is a 30-year-old G1, P0 at 39-2/7 weeks all care uncomplicated with Dr. Flaquita Sarabia at the [facility] OB clinic who presented in early labor. She ambulated for approximately 2 hours and made change from 3 to 4-1/2 cm. The patient desires to go natural in labor and has a plan. She did have a few mildly elevated blood pressures in triage but none had to be treated with IV antihypertensives. She is a suspected large baby with approximately 8 to 9 pound estimated weight at due date. She is positive for group B strep. Overnight patient did receive an epidural. The baby had areas of minimal variability. I was called about 6:45 in the morning to review the tracing and was bedside by about 7:00. Patient cervix is 9-1/2 cm AROM was performed clear fluid noted IUPC placed. Patient is not on any Pitocin augmentation.
[2025-04-30] MEDS: OXYTOCIN in NS 20 units 20 UNIT/1,000 ML BAG 125 UNIT IV (10:14)
[2025-04-30] MEDS: BENZO/LANO/ALOE (Dermoplast) 60 GM CAN 1 SPRAY TOP (10:30)
[2025-04-30] MEDS: IBUPROFEN TAB 400 MG TABLET 800 MG PO (10:50)
--- NOTE | 2025-04-30 11:29 | PD.LDDELS ---
Data (Saab) Data Hx Section: No Maternal Blood Type: O Pos Labs: Negative: RPR, Hepatitis B, HIV, Chlamydia and Gonorrhea : 1 Term: 0 : 0 Livin Abortions: Spontaneous & Theraputic: 0 Delivery Data (Saab) Labor Data ROM date: 04/30/25 ROM time: 07:05 Amniotic membrane rupture type: Artificial Amniotic fluid description: Clear Delivery Data Delivered by: Delivery Method Presentation: Vertex position: OA Anesthesia Type Anesthesia Type: Epidural Delivery Room Medications Delivery room medications: Pitocin 20 u IV Placenta Placenta delivery description: Spontaneous cord blood collection: Cord Blood Type Episiotomy Episiotomy description: None Lacerations #1: Perineal: 2nd degree EBL Estimated blood loss (ml): 180 Umbilical Cord cord description: 3 Vessels Complications Complications: none Data (Saab) Data order: 1 's gender: Male weight (gms): 3100 kg 1 minute: 8 5 minutes: 9 Additional Comments Additional comments: delivered a LB/male baby / seen RN notes for more details
[2025-04-30 12:05] LABS: Basophils # (Auto) 0.0 Thou/mm3 (0.0-0.2); Basophils % (Auto) 0 % (0-2.5); Eosinophils # (Auto) 0.0 Thou/mm3 (0.0-0.5); Eosinophils % (Auto) 0 % (0-10); Hematocrit 30.2 % (36.0-46.0); Hemoglobin 10.4 g/dL (12.0-16.0); Immature Granulocytes Auto 0.06 Thou/mm3 (0.00-0.00); Lymphocytes # (Auto) 1.9 Thou/mm3 (1.0-4.8); Lymphocytes % (Auto) 13 % (10-50); Mean Corpuscular HGB Conc 34.4 g/dl (31.0-37.0); Mean Corpuscular Hemoglobin 31.5 pg (25.0-35.0); Mean Corpuscular Volume 92 fL (80-100); Monocytes # (Auto) 0.6 Thou/mm3 (0.0-0.8); Monocytes % (Auto) 4 % (0-12); Neutrophils # (Auto) 12.6 Thou/mm3 (1.8-7.7); Neutrophils % (Auto) 83 % (37-80); Nucleated Red Blood Cell # 0.00 Thou/mm3 (0.00-0.00); Nucleated Red Blood Cell % 0 /100 WBC (0); Platelet Count 288 Thou/mm3 (140-440); RDW Standard Deviation 48.9 fL (36.4-46.3); Red Blood Count 3.30 Miln/mm3 (4.00-5.20); White Blood Count 15.3 Thou/mm3 (3.6-11.0)
[2025-05-01] MEDS: ACETAMINOPHEN 325 MG TABLET 650 MG PO (03:19)
[2025-05-01 03:56] VITALS: BP 137/81; PULSE 87; RESP 16; TEMP 37; O2SAT 99
[2025-05-01 06:27] LABS: Basophils # (Auto) 0.0 Thou/mm3 (0.0-0.2); Basophils % (Auto) 0 % (0-2.5); Eosinophils # (Auto) 0.1 Thou/mm3 (0.0-0.5); Eosinophils % (Auto) 1 % (0-10); Hematocrit 28.9 % (36.0-46.0); Hemoglobin 9.6 g/dL (12.0-16.0); Immature Granulocytes Auto 0.05 Thou/mm3 (0.00-0.00); Lymphocytes # (Auto) 3.9 Thou/mm3 (1.0-4.8); Lymphocytes % (Auto) 29 % (10-50); Mean Corpuscular HGB Conc 33.2 g/dl (31.0-37.0); Mean Corpuscular Hemoglobin 31.1 pg (25.0-35.0); Mean Corpuscular Volume 94 fL (80-100); Monocytes # (Auto) 0.7 Thou/mm3 (0.0-0.8); Monocytes % (Auto) 5 % (0-12); Neutrophils # (Auto) 8.7 Thou/mm3 (1.8-7.7); Neutrophils % (Auto) 64 % (37-80); Nucleated Red Blood Cell # 0.00 Thou/mm3 (0.00-0.00); Nucleated Red Blood Cell % 0 /100 WBC (0); Platelet Count 295 Thou/mm3 (140-440); RDW Standard Deviation 51.8 fL (36.4-46.3); Red Blood Count 3.09 Miln/mm3 (4.00-5.20); White Blood Count 13.5 Thou/mm3 (3.6-11.0)
[2025-05-01 08:00] VITALS: BP 126/83; PULSE 73; RESP 16; TEMP 37.1; O2SAT 98
--- NOTE | 2025-05-01 10:23 | PC.CC ---
Patient is a 30 year-old, female, presents to the hospital to deliver her baby boy. 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 ASW, Patricia, made [id number] contact to complete an assessment due to concerns of anxiety. ASW introduced herself, role in the agency, reason for visit, and discussed limits of confidentiality. At bedside was patient?s life partner Edgar Lundy whom patient provided verbal consent to remain in the room during assessment. Patient appeared alert and oriented to self, time, place, and situation. Patient made good eye contact. Patient was cooperative. Patient?s behavior appeared ordinary. No signs of delusions or hallucinations. Patient reports the father of the baby is her life partner. Patient confirmed information on demographics. Patient reports she has been feeling a little anxious regarding becoming a new mother but has family support to help her. Patient reports she has not produced milk, which is causing her anxiety as well. She reports she will be breast feeding and formula feeding her new-born. ASW provided psychoeducation regarding baby blues and Post- Depression, as well as counseling groups at the [facility], and [facility]. SW provided community resources: Warm Line and Crisis Line. Patient denied history with CWS as this is her first child. Patient denied history of domestic violence. Patient reports she has all the supplies she needs for her new-born and is not receiving any community resources such as WIC and SNAP. Patient reports her support system includes her significant other, mother, and other family. ASW provided update to bedside SAUNDRA Huffman.
[2025-05-01] MEDS: INFLUENZA VIRUS QUADRIVALENT 0.5 ML SYRINGE IMi (13:57)
--- NOTE | 2025-05-01 18:43 | ESDS_ITS ---
DS: Providers Provider Date of admission: 04/29/25 20:50 Primary care physician: Physician No Primary/Family Admitting Provider: Tere Sarabia MD (OB Clinic) Attending Provider on Admission: Tere Sarabia MD (OB Clinic) Consults: 04/30/25 11:33 Referral Routine Comment: Attending Provider on DC: Yoselyn Sanchez MD Discharging Provider: Yoselyn Sanchez MD DS: Diagnosis Discharge Diagnosis (1) Mother positive for group B Streptococcus colonization: Status: Acute (2) Obesity affecting : Status: Acute (3) Supervision of high risk in third trimester: Status: Acute (4) Vaginal delivery: Status: Acute Problem List Completed Was Problem List Reviewed/Reconciled?: Yes Summary/Hosp Course Brief History: The patient is a 30-year-old G1, P0 at 39-2/7 weeks all care uncomplicated with Dr. Flaquita Sarabia at the [facility] OB clinic who presented in early labor. She ambulated for approximately 2 hours and made change from 3 to 4-1/2 cm. The patient desires to go natural in labor and has a plan. She did have a few mildly elevated blood pressures in triage but none had to be treated with IV antihypertensives. She is a suspected large baby with approximately 8 to 9 pound estimated weight at due date. She is positive for group B strep. Overnight patient did receive an epidural. The baby had areas of minimal variability. I was called about 6:45 in the morning to review the tracing and was bedside by about 7:00. Patient cervix is 9-1/2 cm AROM was performed clear fluid noted IUPC placed. Patient is not on any Pitocin augmentation.Patient had an on 04/30/2025 and repair of second degree perineal laceration Peripartum Data Delivery Method: Normal Vaginal Delivery Episiotomy Description: None Laceration Description: yes and see Delivery Summary complications: none Status at Discharge Cognitive/behavioral status at discharge: Patient has no alert x3 chest clear CVS RRR NO thromegaly Uterus is nontender Uterus is firm Just below the umbilicus Bowel sounds present Abdomen soft no perineal swelling no hernias noted/no CVAT No calf tenderness Edema mild ROS : complaints none Headache no Blurry vision no Chest pain no Palpitations no Shortness of breath no Nausea or vomiting or constipation no Back pain no Dysuria no Dizziness no calf pain no She is voiding spontaneously after catheter removal yes Passing flatus yes Lochia minimal yes Functional status at discharge: independent ambulation Overall status at discharge: patient is progressing back to baseline Time Spent with Patient Time attestation: Total time spent providing and/or coordinating discharge services: Time spent: Less than 30 minutes Exam Vital Signs Temp Pulse Resp BP Pulse Ox O2 Del Method 98.8 F 73 16 126/83 98 Room Air 05/01/25 08:00 05/01/25 08:00 05/01/25 08:00 05/01/25 08:00 05/01/25 08:00 05/01/25 08:00 Discharge Plan Plan Patient Disposition: HOME (Self Care) Patient condition on transfer: Stable Prescriptions/Referrals Prescriptions/Med Rec: No Action No Known Home Medications diphth,pertus(acell),tetanus 2.5-8-5 Lf-mcg-Lf/0.5mL syringe 0.5 ml IM ONCE Qty: 0.5 0RF Referrals: No Primary/Family,Physician [Primary Care Provider] Patient/Caregiver Discharge Instructions Discharge Activity: activity as tolerated Other Discharge Activity Instructions:: Follow up with OB in 3 weeks call and make an appointment/ take OTc tylenol / Motrin for pain Education Materials: After a Vaginal , Breast Care After , Incision Care After Vaginal , Nutrition While , : Caring for Yourself Print Language: French Stand Alone Forms: Amaris Award Info., Patient Portal Info Letter Discharge Order Discharge Orders: Discharge (Routine); Ordered 05/01/25 Ordered By: Yoselyn Sanchez Planned Discharge Date 05/01/25 (2) Obesity affecting Qualifiers: Trimester: second trimester Obesity type affecting : other obesity due to excess calories Qualified Code(s): O99.212 - Obesity complicating , second trimester; E66.09 - Other obesity due to excess calories
== END 2025-05-01 16:30 | disposition home or self-care (01) | DRG 807 ==
LOC: S4SX 04-30 11:29 → S4NX 04-30 12:56
PROVIDERS: Obstetrics & Gynecology; Admitting Provider Obstetrics & Gynecology; Visit Provider Obstetrics & Gynecology
DX: O99.824 Streptococcus B carrier state complicating childbirth (principal); O99.214 Obesity complicating childbirth; O36.63X0 Maternal care for excessive fetal growth, third trimester, not applicable or unspecified; O70.1 Second degree perineal laceration during delivery; Z37.0 Single live birth; Z3A.39 39 weeks gestation of pregnancy; Z23 Encounter for immunization
CPT/HCPCS: 36415; 59025; 59409; 80053; 81001; 82570; 83615; 84156; 84550; 85025; 85384; 85610; 85730; 86780; 86850; 86900; 86901; 87086; 90686; 94762; J0290; J2590; J2795; J3010; J7050; J7120; A9270; J9060

== ENCOUNTER 2025-05-03 15:09 | Outpatient (AMBR) | payer BC, SELFPAY ==
--- NOTE | 2025-05-03 16:48 | LAC.VISIT ---
Assessment LAC Breast Assessment Breast Assessment Bilateral: Breast Assessment Comment: mom has large breast and large nipples, both nipples have scabs and mom states previous bleeding LAC Pain Pain Bilateral Nipple: Pain Intensity: Severe (7-10) Character of Pain: Pulling and Sharp Pain Comment: baby will chomp down, bite down during a nursing session, mom feels severe pain at these times Alternative Milk Expression Alternative Milk Expression Alternative Method Used: Yes Method Used: Hand Expression and Pumping Alternative Method Comment: put mom on a pump today, this is mom's first time pumping since delivery, in the hospital mom was given a hand pump, but the nurse stated that she was not familiar with it and did not know how to use it. mom states she tried to pump with it but felt extreme pain with it so discontinued pumping. was already painful enough Alternative Method Used Reason: Poor Feeding and Sore Nipples Alternative Method Produced Milk / Colostrum: Yes Production Amount: 25 Production ounces or mls: mls Pump Used: Electric Pumping Frequency Comment: explained that mom should be pumping every 2-3 hours including at night. for at least 20 minutes, and she can go up to 30 minutes without over stimulation LAC Assessment Breast Feeding Assessment Date of : 04/30/25 Current Age of baby: 3 (days) Weight: 3090.098 g Current weight of baby: 2990.875 g [place] # of Stool voids in last 24 hrs: 4 Stool Size: Small Color of Stools: yellow and seedy # of Urine voids in last 24 hrs: 3 Color of Urine: light yellow Breast Feeding Ability: Poor [place] Complications: Difficult Latch [place] Complications Comment: baby having a hard time staying awake at the breast. Activity Level: Sleepy Muscle Tone: Tense Suck Quality: Areolar Compression Effective [place] Suck: No [place] Jaw: Clentched [place] Lip Seal: Excess Suction, Chomping and Tight Lips Feeding Posistion: Football Additional Latch or Posistion Assistance Needed: Minimal Breast Feeding Comment: helped mom with football position, baby liked this position better than a cross cradle LAC Intervention Interventions Tools: Nipple Shield, Breast Shells, Pump and Aid Other Tools: used an SNS to help shorten the feed since baby is falling alseep so fast and not finishing a good feed. this will help get milk transfer without using a bottle Nipple Shield Size: Medium Techniques Discussed: Latch, Position and Pumping Engorgement Techniques Discussed: Breast Massage While Discharge Follow Up Appointment Date and Time: follow up 1 week or after dental visit Other Referral Made: Yes Feeding Preference at Discharge: Exclusive LAC Latch Score LATCH Score Latch: Grasps Breast, Rythmic Suck Audible Swallow: Spontaneous, Intermittent, Frequent Nipple Type: Everted After Stimulation Comfort: Red, Small Blisters, Bruises Hold: No Assistance Needed Total Score: 9 LAC [place] Oral Assessment [place] Oral Assessment Prenulum Level: Anterior Lip: Tight Upper Lip Palate: High Oral Assessment Comment: tongue tie and lip tie Dental Referral made: Yes (resource list given) LAC Education Education : Education Topics: Lanolin, Milk Production, Nipple Care, Risk of Bottles and Pacifiers and Signs of Adequate Intake Teaching Methods: Verbal instruction, Demonstration and Hand Out OP DC Assessment Discharge Follow Up Appointment Date and Time: follow up 1 week or after dental visit Other Referral Made: Yes Visit Complete?: Yes
== END 2025-05-06 23:59 | disposition home or self-care (01) ==
LOC: HODLAC 15:09
DX: Z39.1 Encounter for care and examination of lactating mother (principal)

== ENCOUNTER 2025-05-06 09:38 | Outpatient (AMB) | payer BC, SELFPAY ==
[2025-05-06 09:48] VITALS: BP 129/94; PULSE 100; RESP 18; TEMP 36.2; O2SAT 98
--- NOTE | 2025-05-06 09:48 | AMB.OBPP ---
Vital Signs 05/06/25 09:48 Weight 100.244 kg Weight Measurement Method Standing Scale BP 129/94 H Blood Pressure Source Automatic Cuff Blood Pressure Location Left Upper Arm Position Standing Respiration 18 Pulse 100 Pulse Source Monitor Temp 97.2 F Temp Source Oral Pulse Oximetry (%) 98 Oxygen Delivery Method Room Air Allergies/Home Meds Allergies & Medications Allergies No Known Allergies Allergy (Verified 05/06/25 11:40) Medication Reconciliation No Known Home Medications 11/10/24 [History Confirmed 05/06/25] Intake Visit Data Collection New Patient or Established: Established Patient (seen at [facility] within 3 years) Reason for Visit:: POSPARTUM Seen by Clinical Staff ONLY (RN/MA): No [employer] Required: No Do You Feel Safe at Home: Yes Authorities Contacted: N/A PCP or OBGYN visit in last 3 months: Yes Hx Now: Yes Are you currently on any form of Control: No Pain Present Currently: No Pain Scale Used: Julio-Boswell/Numerical Pain scale:: 0 Smoking Status Smoking Status: Never smoker Immunizations Flu Vaccine in the Last 12 Months: No Flu Vaccine Exclusion Criteria: No Exclusion Criteria MD PHYSICIAN DERMATOLOGIST: Past Medical History Past Medical History: No Hx Neurological Disorders, No Hx Cardiac Disorders, No Hx Cancer, Yes Hx Blood Disorders, Yes Hx Anemia (In high school), Yes Hx Gastrointestinal Disorders, Yes Hx Renal Disease (Both parents-kidney stones), No Hx Diabetes Mellitus Type 1 and No Hx Diabetes Mellitus Type 2 Questionnaires Covid-19 Vaccine Questionnaire Has patient been vacinated for Covid-19 Have you been vacinated for Covid-19: No Social History Living Situation History Lives With: Family Housing: House Housing Other:: The patient works as an at an [employer] program. FOB present Tobacco History Smoking Status: Never smoker Second Hand Smoke Exposure: No Alcohol History Alcohol Intake: Never Domestic Abuse History Do You Feel Safe at Home: Yes EPDS - PP Depression Screening [place] Pos[place] Depression Screen I have been able to laugh and see the funny side of things: (0) As much as I always could I have looked forward with enjoyment to things: (0) As much as I ever did I have blamed myself unnecessarily when things went wrong: (0) No, never I have been anxious or worried for no good reason: (0) No, not at all I have felt scared or panicky for no very good reason: (0) No, not at all Things have been getting on top of me: (0) No, I have been coping as well as ever I have been so unhappy that I have had difficulty sleeping: (0) No, not at all I have felt sad or miserable: (0) No, not at all I have been so unhappy that I have been crying: (0) No, never The thought of harming myself has occurred to me: (0) Never Total Score: EPDS Score: Referral is indicated for score of 9 or more, suicidal, or if provider believes patient is depressed regardless of score.: 0 EPDS completed yes HPI Interval History: 30-year-old 1 para 1 here for follow-up on headaches and elevated blood pressure. Patient had a vaginal April 30. A baby boy weighing 6 pounds 13 ounces. Patient delivered at 39 weeks 5 and spontaneous labor. She has breast and bottlefeeding she says she is happy no depression. She came for follow-up because several days ago she was not feeling well. Headache with no visual changes. Patient felt she needed to be seen so she went to [facility] in [place] and she saw an OB there the OB did PIH labs. Told her you know to come see patient person that was giving her care. Today she does have a mild headache. No epigastric pain. Was or delivery considered high risk: No Delivery type: vaginal Was labor induced: no Gestational age at delivery (weeks): 39.5 Delivery date: 04/30/25 Delivering provider: marques Delivery complications: No Is patient infant: Yes Is patient sexually active: No Contraception planned: unsure Review of Systems Review of Systems ROS limited to current MD PHYSICIAN DERMATOLOGIST complaints: Yes Exam Narrative Physical exam: Normal heart rate and rhythm. Lungs clear no wheezes. Abdomen is soft nontender. Uterus well involuted. Perineum is intact no lacerations. No swelling. Small lochia. Negative Homans' sign. 2+ DTRs. No edema no swelling. Breasts are soft, no s/s of infection, dtr 2+, no clonus, minimal swelling General Limitations: no limitations General Appearance: alert, in no apparent distress, comfortable, cooperative, healthy appearing, well developed and well groomed Neck Neck exam: Present normal inspection, full ROM and trachea midline Chest Chest inspection: Present normal inspection and symmetric chest wall rise Resp Respiratory exam: Present normal lung sounds bilaterally Card Cardiovascular exam: Present regular rate, normal rhythm and normal heart sounds Abdominal Abdominal exam: Present soft and normal bowel sounds Extremities Extremities exam: Present normal inspection and full ROM Results Objective Laboratory: CMP: ALB/Creat ratio: 271, ALB: 3,8, uric acid: 5.3, sgpt: 81/alt: 60 Office Procedures OBC Clinic LOC & Office Proc's Nursing/Assessment Patient Status: Established Patient OB Clinic Nursing Assessment: Medication Reconciliation, Update PMH in EMR and Vital Signs OB Clinic Coordination of Care: Consent,records obtained, informed consent, Education Simp Pt/Fam, Lab and Imaging orders, Results/Orders obtained and Staff clarify orders Special Needs: Heart tones Established Patient Charge Established Patient Point Assignment: 110 Established Patient Point Charge: EP Level 3 (80-115) Assessment & Plan Diagnosis / Problem List (1) Encounter for visit: Status: Acute Plan Reviewed CMP results and complaints with OB on-call. Discussed with patient care options, the main 1 included being admitted to inpatient and given magnesium sulfate for 24 hours and then sent home on BP meds to help prevent seizures. Patient elected to be admitted and started magnesium sulfate and labetalol therapy. So patient was a direct admit to [facility] by . Care Reviewed delivery summary and any complications: Yes Uterus involuted to: 2 below Perineal / incision healing noted: Yes Screened for depression: Yes Depression counseling provided: No Discussed family planning & contraception: Yes Contraception planned: unsure Counseling on safe resumption of sexual activity: Yes Counseling on gradual excercise: Yes Discussed and concerns (describe), provided support: Yes Referred to crm marketing specialist: Yes Counseled on good nutrition, hydration, and self care: Yes Reviewed vaccine status: No Chronic & current problems reconciled on problem list: Yes Additional counseling & anticipatory guidance provided: Patient direct admit to [facility] for magnesium therapy x 24 hours and labetalol IV. Will evaluate when discharged.
== END 2025-05-06 11:11 | disposition home or self-care (01) ==
PROVIDERS: Supervising Provider Advanced Practice Midwife; Visit Provider Advanced Practice Midwife
DX: Z39.2 Encounter for routine postpartum follow-up (principal); Z39.1 Encounter for care and examination of lactating mother
CPT/HCPCS: 99213; G0463

== ENCOUNTER 2025-05-06 11:34 | Inpatient (IN) | payer BC, SELFPAY ==
[2025-05-06] VITALS (52 sets, daily range): BP systolic 108–155; BP diastolic 65–99; PULSE 67–96; RESP 17–20; TEMP 36.9–37.1; O2SAT 91–100; BMI 33.7; BMI 36.9
--- NOTE | 2025-05-06 11:56 | EKG_ITS ---
[facility] Test Date: 2025-05-06 Pat Name: KASIE LEE Department: Room: - Gender: Female Manager Animal: : [id number] Requested By: Katerin Andrews Order Number: [id number] Reading MD: Katerin Andrews Measurements Intervals [place] Rate: 86 P: 40 WY: 133 QRS: 37 QRSD: 86 T: 36 QT: 349 QTc: 418 Interpretive Statements SINUS RHYTHM No previous ECG available for comparison /store/S0/[id number]/ecg/[id number].pdf
--- NOTE | 2025-05-06 12:02 | PD.EDRECHK ---
ED Recheck Abnl Lab Rx-RME/HPI General Chief Complaint: Recheck/Abnormal Lab/Rx Stated Complaint: needs admission for PP preeclampsia Time Seen by Provider: 05/06/25 11:42 Arrival date/time: 05/06/25 11:34 This 30-year-old female patient 1 para 1, 6 days , was sent to us by [facility], Dr. Fernandez, for preeclampsia. Patient has been having leg swelling 4 days ago, associated with headache, dizziness, and chest discomfort. Went to [place], and was seen in [facility], and was advised that she probably had mild preeclampsia. Today had a follow-up with Dr. Suarez, and was advised to go to emergency room for admission. Currently patient is complaining of mild dizziness, no headache no neck pain but also complained of mild chest discomfort. Her leg swelling is totally gone. No fever noted. Related Data Home Medications ?Medication ?Instructions ?Recorded ?Confirmed No Known Home Medications 11/10/24 05/06/25 Allergies Allergy/AdvReac Type Severity Reaction Status Date / Time No Known Allergies Allergy Verified 05/06/25 11:40 Review of Systems Review of Systems Narrative Review of Systems: Review of system reviewed and within normal limits except mentioned in HPI ED Exam Narrative Physical exam: VITAL SIGNS: Reviewed. GENERAL APPEARANCE: Alert and interactive, follows commands, no acute distress, HEAD AND FACE: Non-traumatic. ENT: PERRL, pink conjunctivitis, eyelid no trauma, Mucous membrane moist. NECK: Supple, nontender, no nuchal rigidity. CHEST: No tenderness, no crepitus, no paradoxical movement, no retractions. LUNGS: Clear, well ventilated, symmetric, no rales, no wheezing, no ronchi, no stridor, good breath sounds bilaterally. HEART: Regular rate, regular rhythm, no murmur, no gallops. ABDOMEN: Soft, positive bowel sounds, nondistended, no guarding, nontender, no rebound, no masses, RECTAL: Deferred. GENITAL: Deferred. NEUROLOGICAL: Gross motor function intact sensory function intact, Appropriate for age. MUSCULOSKELETAL: low back nontender, full range of motion. EXTREMITIES: Nontender, full range of motion. SKIN: Color pink, dry, no rash, no lacerations, no abrasions, no contusions. LYMPHATICS: Deferred. Course Quality Measures none Orders Category Date Time Status Admit to Inpatient Status Routine Admission 05/06/25 12:12 Active Patient Condition Routine Admission 05/06/25 12:12 Ordered COVID-19 Screening Questionnaire NOW Care 05/06/25 12:06 Active Decision to Admit X1 Care 05/06/25 12:06 Completed EKG (ED ONLY) *Do not use* NOW Care 05/06/25 11:57 Completed Insert IV NOW Care 05/06/25 12:12 Active Notify provider NEEDED Care 05/06/25 12:13 Active Obtain weight daily Care 05/06/25 12:13 Completed Obtain weight daily Care 05/06/25 12:32 Completed Strict Intake and Output Q1H Care 05/06/25 12:15 Ordered Strict Intake and Output Q1H Care 05/06/25 12:45 Ordered Strict Intake and Output Q1H Care 05/06/25 13:15 Ordered Strict Intake and Output Q1H Care 05/06/25 13:45 Ordered Strict Intake and Output Q1H Care 05/06/25 14:15 Ordered Strict Intake and Output Q1H Care 05/06/25 14:45 Ordered Strict Intake and Output Q1H Care 05/06/25 15:15 Ordered Strict Intake and Output Q1H Care 05/06/25 15:45 Ordered Strict Intake and Output Q1H Care 05/06/25 16:15 Ordered Strict Intake and Output Q1H Care 05/06/25 16:45 Ordered Strict Intake and Output Q1H Care 05/06/25 17:15 Ordered Strict Intake and Output Q1H Care 05/06/25 17:45 Ordered Strict Intake and Output Q1H Care 05/06/25 18:15 Ordered Strict Intake and Output Q1H Care 05/06/25 18:45 Ordered Strict Intake and Output Q1H Care 05/06/25 19:15 Ordered Strict Intake and Output Q1H Care 05/06/25 19:45 Ordered Strict Intake and Output Q1H Care 05/06/25 20:15 Ordered Strict Intake and Output Q1H Care 05/06/25 20:45 Ordered Strict Intake and Output Q1H Care 05/06/25 21:15 Ordered Strict Intake and Output Q1H Care 05/06/25 21:45 Ordered Strict Intake and Output Q1H Care 05/06/25 22:15 Ordered Strict Intake and Output Q1H Care 05/06/25 22:45 Ordered Strict Intake and Output Q1H Care 05/06/25 23:15 Ordered Strict Intake and Output Q1H Care 05/06/25 23:45 Ordered Strict Intake and Output Q1H Care 05/07/25 00:15 Ordered Strict Intake and Output Q1H Care 05/07/25 00:45 Ordered Strict Intake and Output Q1H Care 05/07/25 01:15 Ordered Strict Intake and Output Q1H Care 05/07/25 01:45 Ordered Strict Intake and Output Q1H Care 05/07/25 02:15 Ordered Strict Intake and Output Q1H Care 05/07/25 02:45 Ordered Strict Intake and Output Q1H Care 05/07/25 03:15 Ordered Strict Intake and Output Q1H Care 05/07/25 03:45 Ordered Strict Intake and Output Q1H Care 05/07/25 04:15 Ordered Strict Intake and Output Q1H Care 05/07/25 04:45 Ordered Strict Intake and Output Q1H Care 05/07/25 05:15 Ordered Strict Intake and Output Q1H Care 05/07/25 05:45 Ordered Strict Intake and Output Q1H Care 05/07/25 06:15 Ordered Strict Intake and Output Q1H Care 05/07/25 06:45 Ordered Strict Intake and Output Q1H Care 05/07/25 07:15 Ordered Strict Intake and Output Q1H Care 05/07/25 07:45 Ordered Strict Intake and Output Q1H Care 05/07/25 08:15 Ordered Strict Intake and Output Q1H Care 05/07/25 08:45 Ordered Strict Intake and Output Q1H Care 05/07/25 09:15 Ordered Strict Intake and Output Q1H Care 05/07/25 09:45 Ordered Strict Intake and Output Q1H Care 05/07/25 10:15 Ordered Strict Intake and Output Q1H Care 05/07/25 10:45 Ordered Strict Intake and Output Q1H Care 05/07/25 11:15 Ordered Strict Intake and Output Q1H Care 05/07/25 11:45 Ordered Strict Intake and Output Q1H Care 05/07/25 12:15 Ordered Strict Intake and Output Q1H Care 05/07/25 12:45 Ordered Referral NOW Cons 05/06/25 12:30 Ordered Diet Clear Liquid Diet 05/06/25 Dinner Active EKG (ED Only) Stat Exams 05/06/25 11:56 Draft CBC Q6H Lab 05/06/25 18:45 Ordered CBC Q6H Lab 05/07/25 00:45 Ordered CBC Q6 Lab 05/07/25 06:45 Ordered CBC Q6 Lab 05/07/25 12:45 Ordered CBC Q Lab 05/07/25 18:45 Ordered CBC Q6 Lab 05/08/25 00:45 Ordered CBC Q6 Lab 05/08/25 05:45 Ordered CBC [CBC] Stat Lab 05/06/25 12:15 Completed CMP [Comprehensive Metabolic Panel] Q6 Lab 05/06/25 14:35 Received CMP [Comprehensive Metabolic Panel] Q6 Lab 05/07/25 00:45 Ordered CMP [Comprehensive Metabolic Panel] Q6 Lab 05/07/25 06:45 Ordered CMP [Comprehensive Metabolic Panel] Q6 Lab 05/07/25 12:45 Ordered CMP [Comprehensive Metabolic Panel] Q6 Lab 05/07/25 18:45 Ordered CMP [Comprehensive Metabolic Panel] Q6 Lab 05/08/25 00:45 Ordered CMP [Comprehensive Metabolic Panel] Q6 Lab 05/08/25 05:45 Ordered CMP [Comprehensive Metabolic Panel] Stat Lab 05/06/25 12:15 Completed D-Dimer Stat Lab 05/06/25 12:15 Completed Fibrinogen Stat Lab 05/06/25 12:15 Completed LDH (Lactate Dehydrogenase) Q Lab 05/06/25 14:35 Received LDH (Lactate Dehydrogenase) Q Lab 05/07/25 00:45 Ordered LDH (Lactate Dehydrogenase) Q6 Lab 05/07/25 06:45 Ordered LDH (Lactate Dehydrogenase) Q6 Lab 05/07/25 12:45 Ordered LDH (Lactate Dehydrogenase) Q6 Lab 05/07/25 18:45 Ordered LDH (Lactate Dehydrogenase) Q Lab 05/08/25 00:45 Ordered LDH (Lactate Dehydrogenase) Q6 Lab 05/08/25 05:45 Ordered Magnesium Q Lab 05/06/25 14:35 Received Magnesium Q Lab 05/07/25 00:45 Ordered Magnesium Q6 Lab 05/07/25 06:45 Ordered Magnesium Q6 Lab 05/07/25 12:45 Ordered Magnesium Q6 Lab 05/07/25 18:45 Ordered Magnesium Stat Lab 05/06/25 12:15 Completed PT [Prothrombin Time with INR] Stat Lab 05/06/25 12:15 Completed PTT [Partial Thromboplastin Time] Stat Lab 05/06/25 12:15 Completed Troponin I Stat Lab 05/06/25 12:15 Completed UA, C/S IF [Urinalysis, C/S if Indicated] Stat Lab 05/06/25 14:35 Completed Uric Acid Q6H Lab 05/06/25 14:35 Received Uric Acid Q6H Lab 05/07/25 00:45 Ordered Uric Acid Q6H Lab 05/07/25 06:45 Ordered Uric Acid Q6H Lab 05/07/25 12:45 Ordered Uric Acid Q6H Lab 05/07/25 18:45 Ordered Uric Acid Q6H Lab 05/08/25 00:45 Ordered Uric Acid Q6H Lab 05/08/25 05:45 Ordered Uric Acid Stat Lab 05/06/25 12:15 Completed Urine Culture Stat Lab 05/06/25 14:35 Received Calcium Gluconate 10% Inj Med 05/06/25 12:10 Active 1 gm IV PRN PRN Labetalol IV [Trandate IV] Med 05/06/25 12:10 Discontinued 20 mg IVP X1 ONE Labetalol IV [Trandate IV] Med 05/06/25 12:10 Discontinued 40 mg IVP X1 ONE Labetalol IV [Trandate IV] Med 05/06/25 12:10 Discontinued 80 mg IVP X1 ONE Labetalol Tab [Trandate Tab] Med 05/06/25 14:00 Active 200 mg PO TID Magnesium Sulf 20 gm Ivpb [Magnesium Sulfate Ivpb] Med 05/06/25 12:15 Active 20 gm in 500 ml IV 2 g/hr Magnesium Sulfate 4 GM Ivpb [Magnesium Sulfate Ivpb] Med 05/06/25 12:10 Discontinued 4 gm in 50 ml IV X1 NIFEdipine [Procardia] Med 05/06/25 12:06 Discontinued 10 mg PO X1 ONE hydrALAZINE INJ [Apresoline Inj] Med 05/06/25 12:10 Active 5 mg IVP Q20MIN PRN Code Status Routine Oth 05/06/25 12:10 Ordered Vital Signs Vital signs: Vital Signs Temperature 98.7 F 05/06/25 11:51 Pulse Rate 85 05/06/25 11:51 Respiratory Rate 18 05/06/25 11:51 Blood Pressure 138/99 H 05/06/25 11:51 Pulse Oximetry (%) 95 05/06/25 11:51 Oxygen Delivery Method Room Air 05/06/25 11:51 Recheck / Abnormal Lab / Rx MDM Narrative MDM Narrative:: This 30-year-old female patient 1 para 1, 6 days , was sent to us by [facility]PER[facility], Dr. Fernandez, for preeclampsia. Patient has been having leg swelling 4 days ago, associated with headache, dizziness, and chest discomfort. Went to [place], and was seen in [facility], and was advised that she probably had mild preeclampsia. Today had a follow-up with Dr. Suarez, and was advised to go to emergency room for admission. Currently patient is complaining of mild dizziness, no headache no neck pain but also complained of mild chest discomfort. Her leg swelling is totally gone. No fever noted. Patient with blood pressure was noted to be 155/97, heart rate of 85. On the other arm the blood pressure was noted to be 138/[address] Fernandez Who told me that he is going to admit the patient told me to start the patient on Procardia 10 mg p.o. x 1 EKG is interpreted by me showed normal sinus rhythm, ventricular rate of 86 bpm, no ST segment elevation or depression noted. CBC came back unremarkable except for slight anemia. CMP fibrinogen 609 slightly elevated D-dimer 1860, urinalysis no proteinuria. Positive UTI. Patient data External records reviewed:: None Clinical information provided by:: patient Social determinants that could affect healthcare access:: none Patient has the following chronic illnesses:: none, 6 days How is presenting disease/condition affected by chronic disease/condition?: exacerbated by Evaluation data The following diagnostics were reviewed and interpreted by me:: lab results, radiology exam(s) and EKG tracing(s) Lab and/or radiology exams considered but not ordered:: none Interpretation Summary: See results MDM Medications / Prescriptions Medications or Prescriptions considered but not ordered:: None Medication administrations:: Medication Administration History Calcium Gluconate (Calcium Gluconate 10% Inj 1 Gm/10 Ml Vial) 1 gm IV PRN PRN PRN Reason: SEE DOSE INSTRUCTIONS Hydralazine HCl (Hydralazine Inj 20 Mg/Ml Vial) 5 mg IVP Q20MIN PRN PRN Reason: Hypertensive Emergency Magnesium Sulfate (Magnesium Sulfate Ivpb) 20 gm in 500 mls @ 50 mls/hr IV .Q10H HUBER Stop: 05/09/25 12:14 Last Admin: 05/06/25 14:11 Dose: 2 g/hr, 50 mls/hr Documented By: ANGY Co-signed By: ANSON Labetalol HCl (Labetalol 100 Mg Tablet) 200 mg PO TID HUBER Stop: 06/05/25 13:59 Last Admin: 05/06/25 15:28 Dose: 200 mg Documented By: EF Discontinued Medications Magnesium Sulfate (Magnesium Sulfate Ivpb) 4 gm in 50 mls @ 150 mls/hr IV X1 ONE Stop: 05/06/25 12:29 Last Infusion: 05/06/25 14:01 Dose: Infused Documented By: Admin: 05/06/25 13:41 Dose: 150 mls/hr Documented By: ANGY Labetalol HCl (Labetalol Inj 5 Mg/Ml Vial 20 Ml) 20 mg IVP X1 ONE Stop: 05/06/25 12:11 Last Admin: 05/06/25 13:18 Dose: Not Given Documented By: EF Non-Admin Reason: hold per Labetalol HCl (Labetalol Inj 5 Mg/Ml Vial 20 Ml) 40 mg IVP X1 ONE Stop: 05/06/25 12:11 Last Admin: 05/06/25 13:18 Dose: Not Given Documented By: EF Non-Admin Reason: hold per Labetalol HCl (Labetalol Inj 5 Mg/Ml Vial 20 Ml) 80 mg IVP X1 ONE Stop: 05/06/25 12:11 Last Admin: 05/06/25 13:19 Dose: Not Given Documented By: EF Non-Admin Reason: hold per Nifedipine (Nifedipine 10 Mg Capsule) 10 mg PO X1 ONE Stop: 05/06/25 12:07 Last Admin: 05/06/25 12:36 Dose: 10 mg Documented By: ED Patient received Procardia, magnesium sulfate, Consultations Consultation(s) initiated? (list below): No Diagnosis Recheck Differential Diagnosis: other Most likely diagnosis given after review of the tests above:: Preeclampsia Admission Indicated Admission indicated?: indicated Admission Request Was there a request for admission?: Yes Admission Attestation Admission request attestation: Discussed case with [] from Hospitalist service regarding admission. Discussed patients ED course, exam findings, labs, and radiology results. The Hospitalist [agrees,declines] to accept the patient for admission. Disposition Plan Disposition Plan: Admit Discharge Plan Plan Patient Disposition: Admit Acute Care w/in Hospital Discharge Disposition comment: Stable Problem List Clinical Impression: Pre-eclampsia
[2025-05-06 12:38] LABS: Basophils # (Auto) 0.1 Thou/mm3 (0.0-0.2); Basophils % (Auto) 1 % (0-2.5); Eosinophils # (Auto) 0.1 Thou/mm3 (0.0-0.5); Eosinophils % (Auto) 1 % (0-10); Hematocrit 35.2 % (36.0-46.0); Hemoglobin 11.6 g/dL (12.0-16.0); Immature Granulocytes Auto 0.05 Thou/mm3 (0.00-0.00); Lymphocytes # (Auto) 3.0 Thou/mm3 (1.0-4.8); Lymphocytes % (Auto) 30 % (10-50); Mean Corpuscular HGB Conc 33.0 g/dl (31.0-37.0); Mean Corpuscular Hemoglobin 31.4 pg (25.0-35.0); Mean Corpuscular Volume 95 fL (80-100); Monocytes # (Auto) 0.5 Thou/mm3 (0.0-0.8); Monocytes % (Auto) 5 % (0-12); Neutrophils # (Auto) 6.0 Thou/mm3 (1.8-7.7); Neutrophils % (Auto) 62 % (37-80); Nucleated Red Blood Cell # 0.00 Thou/mm3 (0.00-0.00); Nucleated Red Blood Cell % 0 /100 WBC (0); Platelet Count 476 Thou/mm3 (140-440); RDW Standard Deviation 51.7 fL (36.4-46.3); Red Blood Count 3.70 Miln/mm3 (4.00-5.20); White Blood Count 9.8 Thou/mm3 (3.6-11.0)
[2025-05-06 13:00] LABS: Alanine Aminotransferase 88 U/L (10-49); Albumin, Serum 5.0 gm/dL (3.5-5.0); Albumin/Globulin Ratio 1.7 (1.2-2.2); Alkaline Phosphatase 134 U/L (46-116); Anion Gap 12 (7-16); Aspartate Amino Transferase 98 U/L (0-34); BUN/Creatinine Ratio 16 Ratio (12-20); Bilirubin,Total 0.4 mg/dL (0.3-1.2); Blood Urea Nitrogen 11 mg/dL (9-23); Calcium 10.2 mg/dL (8.3-10.6); Calcium (Corrected) 10.2 mg/dL (8.5-10.1); Carbon Dioxide 24.8 mMol/L (20.0-31.0); Chloride 102 mMol/L (98-107); Creatinine (Component) 0.7 mg/dL (0.6-1.3); Estimated Creatinine Clearance 144.6 mL/min (>60); Globulin 2.9 gm/dL (2.3-3.5); Glucose 93 mg/dL (74-106); Magnesium 1.9 mg/dL (1.6-2.6); Osmolality,Calculated 276 (275-295); Potassium 4.2 mMol/L (3.4-5.1); Sodium 139 mMol/L (136-145); Total Protein 7.9 gm/dL (5.7-8.2); Troponin I < 0.002 ng/mL (0.0-0.045); Uric Acid 4.9 mg/dL (3.1-7.8); eGFR > 60 See Note
[2025-05-06 13:13] LABS: D-Dimer 1860 ng/mL (<600)
[2025-05-06 13:24] LABS: INR 0.9 (0.9-1.3); Partial Thromboplastin Time 25.7 Seconds (22.0-36.0); Prothrombin Time 9.8 Seconds (9.0-12.2)
[2025-05-06 13:25] LABS: Fibrinogen 609 mg/dL (175-375)
[2025-05-06] MEDS: Magnesium Sulfate 4 GM Ivpb 4 GM/50 ML BAG IV (13:41)
[2025-05-06] MEDS: MAGNESIUM SULF 20 GM IVPB 20 GM/500 ML BAG IV ×2 (14:11→23:06)
[2025-05-06 14:41] LABS: Collection Type, Urine Clean Catch
[2025-05-06 15:11] LABS: Bacteria,Urine Rare; Bilirubin,Urine Negative (Negative); Blood,Urine 3+ (Negative); Color,Urine Lt-Yellow (Lt Yel-Yel); Glucose, Urine Negative (Negative); Ketones,Urine Negative (Negative); Leukocyte Esterase,Urine Positive (Negative); Nitrite,Urine Negative (Negative); PH,Urine 6.5 (5.0-7.0); Protein,Urine Negative (Neg - Trace); RBC,Urine 53 /hpf (0-3); Specific Gravity,Urine 1.012 (1.001-1.035); Squamous Epithelial Cell,Urine 1 /hpf (0-5); Urobilinogen,Urine Negative mg/dL (0.0-1.0); WBC,Urine 73 /hpf (0-5)
[2025-05-06 15:19] LABS: Clarity,Urine Hazy (Clear/Hazy); Culture Indicated,Urine Yes
[2025-05-06] MEDS: LABETALOL 100 MG TABLET 200 MG PO (15:28)
--- NOTE | 2025-05-06 15:31 | PD.GYNHP ---
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 LEE is a 30 year old female who is 6 days status post normal spontaneous vaginal delivery on 04/30/2025. Patient presented to the office today for her visit and was noted to have severe range blood pressures. She was complaining of a headache and swelling of legs. She was sent in to the emergency room for readmission and magnesium for seizure prophylaxis Patient denies any visual symptoms, denies any right upper quadrant pain or any other associated complaints. Lochia is reported as appropriate for her status Meds Home Medications and Allergies Home Medications ?Medication ?Instructions ?Recorded ?Confirmed ?Type No Known Home Medications 11/10/24 05/06/25 History Allergies Allergy/AdvReac Type Severity Reaction Status Date / Time No Known Allergies Allergy Verified 05/06/25 11:40 Exam - POLICE INSPECTOR Vital Signs Temp Pulse Resp BP Pulse Ox O2 Del Method 98.5 F 92 17 134/87 H 97 Room Air 05/06/25 14:08 05/06/25 15:28 05/06/25 14:08 05/06/25 15:28 05/06/25 14:08 05/06/25 14:08 Constitutional Constitutional: no acute distress Routine HEENT Exam Head: Present normocephalic and atraumatic Eye: Present EOMI and PERRL ENT: Present mucous membranes moist Routine Neck Exam Neck: Present supple and trachea midline Routine Respiratory Exam Respiratory: Present chest non-tender, lungs clear, normal breath sounds and no resp distress Routine Cardiovascular Exam Cardiovascular: Present RRR Routine Abdominal Exam Abdominal: Present soft and normoactive bowel sounds Routine Extremities Exam Extremities: Present full ROM Routine Skin Exam Skin: Present intact and dry Routine Neurological Exam Neurological: Present alert, oriented X3 and CN II-XII intact Routine Psychiatric Exam Psychiatric: Present normal affect and normal thought process POLICE INSPECTOR - Results Labs 05/06/25 12:15 05/06/25 12:15 Labs: Short CBC 05/06/25 Range/Units 12:15 WBC 9.8 (3.6-11.0) Thou/mm3 Hgb 11.6 L D (12.0-16.0) g/dL Hct 35.2 L (36.0-46.0) % Plt Count 476 H D (140-440) Thou/mm3 BMP 10/31/25 12:15 Sodium 139 Potassium 4.2 Chloride 102 Carbon Dioxide 24.8 BUN 11 Creatinine 0.7 Glucose 93 Calcium 10.2 Cardiac Enzymes 05/06/25 Range/Units 12:15 Troponin I < 0.002 (0.0-0.045) ng/mL Liver Function 05/06/25 Range/Units 12:15 Total Bilirubin 0.4 (0.3-1.2) mg/dL AST 98 H (0-34) U/L ALT 88 H (10-49) U/L Alkaline Phosphatase 134 H (46-116) U/L Albumin 5.0 (3.5-5.0) gm/dL Urine 05/06/25 Range/Units 14:35 Urine Color Lt-Yellow (Lt Yel-Yel) Urine Clarity Hazy (Clear/Hazy) Urine pH 6.5 (5.0-7.0) Ur Specific [place] 1.012 (1.001-1.035) Urine Protein Negative (Neg - Trace) Urine Glucose (UA) Negative (Negative) Assessment and Plan Assessment and plan (1) Preeclampsia in period: Status: Acute Assessment and plan: Admit to inpatient status for magnesium for seizure prophylaxis IV access, magnesium and IV fluids at combined 125 cc/h 4 g magnesium load with 2 g/h for maintenance Baseline labs on admission and labs every 6 hours for monitoring Labetalol 200 x3 times daily to start Patient given 1 dose of oral Procardia in ER IV labetalol and IV hydralazine ordered to be used as needed Quality Measures Quality Measures VTE prophylaxis
--- NOTE | 2025-05-06 16:35 | XR_ITS ---
Examination: CTA chest with intravenous contrast 2-D reconstructions 3-D reconstructions, vascular Date and time of exam: May 06, 2025, 1645 hours INDICATIONS: 6 days with chest pain shortness of breath CTDI: vol (mGy) 37.5 DLP: (mGycm) 457 Technique: Multiple axial sections of the thorax have been obtained. 3 mm slice thickness, from below the hemidiaphragms to above the apices of the lungs. Mediastinal and lung density settings have been obtained. 2-D sagittal and coronal reconstructions. 3-D angiographic renderings, 3-D volume renderings, 3D post processing, vascular maximum intensity projections obtained. Contrast administered is 100 cc Isovue-370. Low dose protocols were performed. One or more of the following dose reduction techniques were used; automated exposure control, adjustment of the mA and/or KV according to patient size, use of iterative reconstruction technique. Findings: No thoracic aortic aneurysm dilatation No pulmonary artery filling defects. No paratracheal tracheobronchial or bronchopulmonary adenopathy. Minor atelectasis in the lower lung zones. Fatty infiltration throughout the liver no focal liver or splenic lesions No pancreatic mass IMPRESSION: Negative for pulmonary artery emboli
--- NOTE | 2025-05-06 18:04 | PRELIM_ITS ---
CT angiogram of the chest with intravenous contrast (axial sections with sagittal and coronal reformats) May 06, 2025 1645 hours Clinical History: Chest pain, elevated D-dimer Technique:Helical axial sections with sagittal and coronal reformats of the chest were obtained with intravenous contrast. Iterative reconstruction technique was employed to reduce patient radiation exposure. 3D/MIP reconstructed images were also provided. Comparison: No prior study is available for comparison. Findings: There is no filling defect within the pulmonary artery divisions to suggest pulmonary thromboembolism. The mediastinum demonstrates no evidence of mass or lymphadenopathy. The thoracic aorta is unremarkable. There is no pericardial effusion. There is bibasilar dependent atelectasis.No evidence of pleural effusion or pneumothorax. The osseous structures are unremarkable. Sebaceous cyst is seen in the left upper posterior chest wall. The visualized upper abdominal viscera demonstrate fatty liver. Impression: No CT evidence of pulmonary thromboembolism or other acute intrathoracic pathology. Report Electronically Signed By: Ricardo Frye 05/06/2025 6:03:48 PM [EST]
[2025-05-06 18:56] LABS: Basophils # (Auto) 0.0 Thou/mm3 (0.0-0.2); Basophils % (Auto) 0 % (0-2.5); Eosinophils # (Auto) 0.1 Thou/mm3 (0.0-0.5); Eosinophils % (Auto) 1 % (0-10); Hematocrit 31.3 % (36.0-46.0); Hemoglobin 10.3 g/dL (12.0-16.0); Immature Granulocytes Auto 0.04 Thou/mm3 (0.00-0.00); Lymphocytes # (Auto) 2.5 Thou/mm3 (1.0-4.8); Lymphocytes % (Auto) 25 % (10-50); Mean Corpuscular HGB Conc 32.9 g/dl (31.0-37.0); Mean Corpuscular Hemoglobin 30.9 pg (25.0-35.0); Mean Corpuscular Volume 94 fL (80-100); Monocytes # (Auto) 0.5 Thou/mm3 (0.0-0.8); Monocytes % (Auto) 5 % (0-12); Neutrophils # (Auto) 6.7 Thou/mm3 (1.8-7.7); Neutrophils % (Auto) 68 % (37-80); Nucleated Red Blood Cell # 0.00 Thou/mm3 (0.00-0.00); Nucleated Red Blood Cell % 0 /100 WBC (0); Platelet Count 427 Thou/mm3 (140-440); RDW Standard Deviation 51.4 fL (36.4-46.3); Red Blood Count 3.33 Miln/mm3 (4.00-5.20); White Blood Count 9.9 Thou/mm3 (3.6-11.0)
[2025-05-06 19:17] LABS: Alanine Aminotransferase 79 U/L (10-49); Albumin, Serum 4.3 gm/dL (3.5-5.0); Albumin/Globulin Ratio 1.6 (1.2-2.2); Alkaline Phosphatase 113 U/L (46-116); Anion Gap 9 (7-16); Aspartate Amino Transferase 89 U/L (0-34); BUN/Creatinine Ratio 15 Ratio (12-20); Bilirubin,Total 0.4 mg/dL (0.3-1.2); Blood Urea Nitrogen 9 mg/dL (9-23); Calcium 8.6 mg/dL (8.3-10.6); Calcium (Corrected) 8.6 mg/dL (8.5-10.1); Carbon Dioxide 25.1 mMol/L (20.0-31.0); Chloride 103 mMol/L (98-107); Creatinine (Component) 0.6 mg/dL (0.6-1.3); Estimated Creatinine Clearance 168.7 mL/min (>60); Globulin 2.7 gm/dL (2.3-3.5); Glucose 134 mg/dL (74-106); Magnesium 4.5 mg/dL (1.6-2.6); Osmolality,Calculated 274 (275-295); Potassium 3.8 mMol/L (3.4-5.1); Sodium 137 mMol/L (136-145); Total Protein 7.0 gm/dL (5.7-8.2); Uric Acid 5.4 mg/dL (3.1-7.8); eGFR > 60 See Note
[2025-05-06 20:44] LABS: LDH (Lactate Dehydrogenase) 235 U/L (120-246)
[2025-05-06] MEDS: ACETAMINOPHEN IVPB 1,000 MG/100 ML VIAL 250 MG IV (21:52)
[2025-05-07] VITALS (228 sets, daily range): BP systolic 97–159; BP diastolic 55–85; PULSE 59–99; RESP 18–19; TEMP 36.5–37.2; O2SAT 87–100
[2025-05-07 01:42] LABS: Alanine Aminotransferase 78 U/L (10-49); Albumin, Serum 4.3 gm/dL (3.5-5.0); Albumin/Globulin Ratio 1.9 (1.2-2.2); Alkaline Phosphatase 114 U/L (46-116); Anion Gap 10 (7-16); Aspartate Amino Transferase 81 U/L (0-34); BUN/Creatinine Ratio 10 Ratio (12-20); Bilirubin,Total 0.4 mg/dL (0.3-1.2); Blood Urea Nitrogen 6 mg/dL (9-23); Calcium 8.3 mg/dL (8.3-10.6); Calcium (Corrected) 8.3 mg/dL (8.5-10.1); Carbon Dioxide 23.6 mMol/L (20.0-31.0); Chloride 103 mMol/L (98-107); Creatinine (Component) 0.6 mg/dL (0.6-1.3); Estimated Creatinine Clearance 159.7 mL/min (>60); Globulin 2.3 gm/dL (2.3-3.5); Glucose 99 mg/dL (74-106); Osmolality,Calculated 271 (275-295); Potassium 3.7 mMol/L (3.4-5.1); Sodium 137 mMol/L (136-145); Total Protein 6.6 gm/dL (5.7-8.2); Uric Acid 5.5 mg/dL (3.1-7.8); eGFR > 60 See Note
[2025-05-07 01:49] LABS: Magnesium 5.6 mg/dL (1.6-2.6)
[2025-05-07 01:53] LABS: LDH (Lactate Dehydrogenase) 275 U/L (120-246)
[2025-05-07 01:59] LABS: Basophils # (Auto) 0.0 Thou/mm3 (0.0-0.2); Basophils % (Auto) 0 % (0-2.5); Eosinophils # (Auto) 0.1 Thou/mm3 (0.0-0.5); Eosinophils % (Auto) 1 % (0-10); Hematocrit 30.1 % (36.0-46.0); Hemoglobin 10.2 g/dL (12.0-16.0); Immature Granulocytes Auto 0.05 Thou/mm3 (0.00-0.00); Lymphocytes # (Auto) 2.9 Thou/mm3 (1.0-4.8); Lymphocytes % (Auto) 28 % (10-50); Mean Corpuscular HGB Conc 33.9 g/dl (31.0-37.0); Mean Corpuscular Hemoglobin 31.4 pg (25.0-35.0); Mean Corpuscular Volume 93 fL (80-100); Monocytes # (Auto) 0.7 Thou/mm3 (0.0-0.8); Monocytes % (Auto) 7 % (0-12); Neutrophils # (Auto) 6.5 Thou/mm3 (1.8-7.7); Neutrophils % (Auto) 63 % (37-80); Nucleated Red Blood Cell # 0.00 Thou/mm3 (0.00-0.00); Nucleated Red Blood Cell % 0 /100 WBC (0); Platelet Count 442 Thou/mm3 (140-440); RDW Standard Deviation 50.8 fL (36.4-46.3); Red Blood Count 3.25 Miln/mm3 (4.00-5.20); White Blood Count 10.2 Thou/mm3 (3.6-11.0)
[2025-05-07] MEDS: LABETALOL 100 MG TABLET 200 MG PO ×2 (06:09→21:44)
[2025-05-07] MEDS: ACETAMINOPHEN 325 MG TABLET 650 MG PO (06:10)
[2025-05-07 07:48] LABS: Basophils # (Auto) 0.0 Thou/mm3 (0.0-0.2); Basophils % (Auto) 1 % (0-2.5); Eosinophils # (Auto) 0.1 Thou/mm3 (0.0-0.5); Eosinophils % (Auto) 2 % (0-10); Hematocrit 31.6 % (36.0-46.0); Hemoglobin 10.4 g/dL (12.0-16.0); Immature Granulocytes Auto 0.03 Thou/mm3 (0.00-0.00); Lymphocytes # (Auto) 2.0 Thou/mm3 (1.0-4.8); Lymphocytes % (Auto) 30 % (10-50); Mean Corpuscular HGB Conc 32.9 g/dl (31.0-37.0); Mean Corpuscular Hemoglobin 31.1 pg (25.0-35.0); Mean Corpuscular Volume 95 fL (80-100); Monocytes # (Auto) 0.5 Thou/mm3 (0.0-0.8); Monocytes % (Auto) 7 % (0-12); Neutrophils # (Auto) 4.0 Thou/mm3 (1.8-7.7); Neutrophils % (Auto) 60 % (37-80); Nucleated Red Blood Cell # 0.00 Thou/mm3 (0.00-0.00); Nucleated Red Blood Cell % 0 /100 WBC (0); Platelet Count 458 Thou/mm3 (140-440); RDW Standard Deviation 52.5 fL (36.4-46.3); Red Blood Count 3.34 Miln/mm3 (4.00-5.20); White Blood Count 6.6 Thou/mm3 (3.6-11.0)
[2025-05-07 09:05] LABS: Alanine Aminotransferase 82 U/L (10-49); Albumin, Serum 4.3 gm/dL (3.5-5.0); Albumin/Globulin Ratio 1.7 (1.2-2.2); Alkaline Phosphatase 116 U/L (46-116); Anion Gap 13 (7-16); Aspartate Amino Transferase 89 U/L (0-34); BUN/Creatinine Ratio 12 Ratio (12-20); Bilirubin,Total 0.4 mg/dL (0.3-1.2); Blood Urea Nitrogen 7 mg/dL (9-23); Calcium 7.8 mg/dL (8.3-10.6); Calcium (Corrected) 7.8 mg/dL (8.5-10.1); Carbon Dioxide 25.5 mMol/L (20.0-31.0); Chloride 102 mMol/L (98-107); Creatinine (Component) 0.6 mg/dL (0.6-1.3); Estimated Creatinine Clearance 159.7 mL/min (>60); Globulin 2.5 gm/dL (2.3-3.5); Glucose 100 mg/dL (74-106); LDH (Lactate Dehydrogenase) 249 U/L (120-246); Osmolality,Calculated 277 (275-295); Potassium 3.7 mMol/L (3.4-5.1); Sodium 140 mMol/L (136-145); Total Protein 6.8 gm/dL (5.7-8.2); Uric Acid 5.4 mg/dL (3.1-7.8); eGFR > 60 See Note
[2025-05-07 09:10] LABS: Magnesium 5.9 mg/dL (1.6-2.6)
[2025-05-07] MEDS: RINGERS LACTATED 1000 ML 1,000 ML 75 ML IV (10:57)
[2025-05-07] MEDS: MAGNESIUM SULF 20 GM IVPB 20 GM/500 ML BAG IV (10:58)
--- NOTE | 2025-05-07 10:59 | PD.LDPPPRG ---
Subjective Subjective Interval history: Patient has no/ complaints Headache no Blurry vision no Chest pain no Palpitations no Shortness of breath no Nausea or vomiting or constipation no Back pain no Dysuria no Dizziness no calf pain no She is on Magnesium sulphate for post pre eclampsia Passing flatus yes Lochia minimal yes Exam Vital Signs Temp Pulse Resp BP Pulse Ox O2 Del Method 97.7 F 80 18 103/56 L 97 Room Air 05/07/25 08:00 05/07/25 10:42 05/07/25 06:52 05/07/25 10:42 05/07/25 10:56 05/07/25 04:00 Narrative Exam alert x3 chest clear CVS RRR NO thromegaly Uterus is nontender Uterus is firm Just below the umbilicus Bowel sounds present Abdomen soft no hernias noted/no CVAT No calf tenderness Edema +2 DTR +2 / no clonus Objective Labs 05/07/25 18:35 05/07/25 18:35 Labs: Laboratory Results - last 24 hr 05/06/25 05/06/25 05/06/25 12:15 14:35 18:43 WBC 9.8 9.9 RBC 3.70 L 3.33 L Hgb 11.6 L D 10.3 L Hct 35.2 L 31.3 L MCV 95 94 MCH 31.4 30.9 MCHC 33.0 32.9 RDW Std Deviation 51.7 H 51.4 H Plt Count 476 H D 427 D Neut % (Auto) 62 68 Lymph % (Auto) 30 25 [place] % (Auto) 5 5 Eos % (Auto) 1 1 Baso % (Auto) 1 0 Neut # (Auto) 6.0 6.7 Lymph # (Auto) 3.0 2.5 [place] # (Auto) 0.5 0.5 Eos # (Auto) 0.1 0.1 Baso # (Auto) 0.1 0.0 Immature Gran # (Auto) 0.05 H 0.04 H Absolute Nucleated RBC 0.00 0.00 Immature Gran % 1 H 0 Nucleated RBC % 0 0 PT 9.8 INR 0.9 APTT 25.7 Fibrinogen 609 H* D-Dimer 1860 H Sodium 139 137 Potassium 4.2 3.8 Chloride 102 103 Carbon Dioxide 24.8 25.1 Anion Gap 12 9 BUN 11 9 Creatinine 0.7 0.6 Estim Creat Clear Calc 144.6 168.7 eGFR > 60 > 60 BUN/Creatinine Ratio 16 15 Glucose 93 134 H Calculated Osmolality 276 274 L Uric Acid 4.9 5.4 Calcium 10.2 8.6 D Corrected Calcium 10.2 H 8.6 D Magnesium 1.9 4.5 H Total Bilirubin 0.4 0.4 AST 98 H 89 H ALT 88 H 79 H Alkaline Phosphatase 134 H 113 D Lactate Dehydrogenase 235 Troponin I < 0.002 Total Protein 7.9 7.0 Albumin 5.0 4.3 D Globulin 2.9 2.7 Albumin/Globulin Ratio 1.7 1.6 Ur Collection Type Clean Catch Urine Color Lt-Yellow Urine Clarity Hazy Urine pH 6.5 Ur Specific [place] 1.012 Urine Protein Negative Urine Glucose (UA) Negative Urine Ketones Negative Urine Blood 3+ A Urine Nitrite Negative Urine Bilirubin Negative Urine Urobilinogen (Auto) Negative Ur Leukocyte Esterase Positive Urine RBC 53 H Urine WBC 73 H Ur Squamous Epith Cells 1 Urine Bacteria Rare Ur Culture Indicated? Yes 05/07/25 05/07/25 00:57 06:52 WBC 10.2 6.6 RBC 3.25 L 3.34 L Hgb 10.2 L 10.4 L Hct 30.1 L 31.6 L MCV 93 95 MCH 31.4 31.1 MCHC 33.9 32.9 RDW Std Deviation 50.8 H 52.5 H Plt Count 442 H 458 H Neut % (Auto) 63 60 Lymph % (Auto) 28 30 [place] % (Auto) 7 7 Eos % (Auto) 1 2 Baso % (Auto) 0 1 Neut # (Auto) 6.5 4.0 Lymph # (Auto) 2.9 2.0 [place] # (Auto) 0.7 0.5 Eos # (Auto) 0.1 0.1 Baso # (Auto) 0.0 0.0 Immature Gran # (Auto) 0.05 H 0.03 H Absolute Nucleated RBC 0.00 0.00 Immature Gran % 1 H 1 H Nucleated RBC % 0 0 PT INR APTT Fibrinogen D-Dimer Sodium 137 140 Potassium 3.7 3.7 Chloride 103 102 Carbon Dioxide 23.6 25.5 Anion Gap 10 13 BUN 6 L 7 L Creatinine 0.6 0.6 Estim Creat Clear Calc 159.7 159.7 eGFR > 60 > 60 BUN/Creatinine Ratio 10 L 12 Glucose 99 100 Calculated Osmolality 271 L 277 Uric Acid 5.5 5.4 Calcium 8.3 7.8 L Corrected Calcium 8.3 L 7.8 L Magnesium 5.6 H* 5.9 H* Total Bilirubin 0.4 0.4 AST 81 H 89 H ALT 78 H 82 H Alkaline Phosphatase 114 116 Lactate Dehydrogenase 275 H 249 H Troponin I Total Protein 6.6 6.8 Albumin 4.3 4.3 Globulin 2.3 2.5 Albumin/Globulin Ratio 1.9 1.7 Ur Collection Type Urine Color Urine Clarity Urine pH Ur Specific [place] Urine Protein Urine Glucose (UA) Urine Ketones Urine Blood Urine Nitrite Urine Bilirubin Urine Urobilinogen (Auto) Ur Leukocyte Esterase Urine RBC Urine WBC Ur Squamous Epith Cells Urine Bacteria Ur Culture Indicated? Assessment & Plan Problem List (1) Preeclampsia in period: Status: Acute Assessment and plan: patient is also on Labetalol 200 mgm po TID (2) Fatty liver: Status: Acute (3) Elevated liver enzymes: Status: Acute Plan Comment Plan Comment: Patient stopped magnesium sulphate at 1400 and subsequently showered and voided and has no headache or blurry vision and her elevated LFT are showing a downward trend / her plate,lets are normal Her BP is controlled on Labetalol 200 mgm po TID and she is going to do home monitoring of BP and hold labetalol if BP is equal or less than 120/80 she will follow up in 1 week at the clinic for BP check she would like to go home as her is home she will be discharged now Time Spent With Patient Time: Total time spent is greater than 50% in coordination of care (as documented) at patient's floor/unit and/or counseling patient:
[2025-05-07 12:25] LABS: Basophils # (Auto) 0.0 Thou/mm3 (0.0-0.2); Basophils % (Auto) 0 % (0-2.5); Eosinophils # (Auto) 0.1 Thou/mm3 (0.0-0.5); Eosinophils % (Auto) 1 % (0-10); Hematocrit 32.9 % (36.0-46.0); Hemoglobin 10.8 g/dL (12.0-16.0); Immature Granulocytes Auto 0.04 Thou/mm3 (0.00-0.00); Lymphocytes # (Auto) 1.8 Thou/mm3 (1.0-4.8); Lymphocytes % (Auto) 27 % (10-50); Mean Corpuscular HGB Conc 32.8 g/dl (31.0-37.0); Mean Corpuscular Hemoglobin 31.1 pg (25.0-35.0); Mean Corpuscular Volume 95 fL (80-100); Monocytes # (Auto) 0.5 Thou/mm3 (0.0-0.8); Monocytes % (Auto) 8 % (0-12); Neutrophils # (Auto) 4.2 Thou/mm3 (1.8-7.7); Neutrophils % (Auto) 63 % (37-80); Nucleated Red Blood Cell # 0.00 Thou/mm3 (0.00-0.00); Nucleated Red Blood Cell % 0 /100 WBC (0); Platelet Count 438 Thou/mm3 (140-440); RDW Standard Deviation 53.0 fL (36.4-46.3); Red Blood Count 3.47 Miln/mm3 (4.00-5.20); White Blood Count 6.6 Thou/mm3 (3.6-11.0)
[2025-05-07 12:45] LABS: Alanine Aminotransferase 94 U/L (10-49); Albumin, Serum 4.5 gm/dL (3.5-5.0); Albumin/Globulin Ratio 1.7 (1.2-2.2); Alkaline Phosphatase 119 U/L (46-116); Anion Gap 10 (7-16); Aspartate Amino Transferase 109 U/L (0-34); BUN/Creatinine Ratio 12 Ratio (12-20); Bilirubin,Total 0.4 mg/dL (0.3-1.2); Blood Urea Nitrogen 7 mg/dL (9-23); Calcium 7.8 mg/dL (8.3-10.6); Calcium (Corrected) 7.8 mg/dL (8.5-10.1); Carbon Dioxide 23.8 mMol/L (20.0-31.0); Chloride 101 mMol/L (98-107); Creatinine (Component) 0.6 mg/dL (0.6-1.3); Estimated Creatinine Clearance 159.7 mL/min (>60); Globulin 2.6 gm/dL (2.3-3.5); Glucose 96 mg/dL (74-106); LDH (Lactate Dehydrogenase) 295 U/L (120-246); Osmolality,Calculated 268 (275-295); Potassium 4.5 mMol/L (3.4-5.1); Sodium 135 mMol/L (136-145); Total Protein 7.1 gm/dL (5.7-8.2); Uric Acid 5.2 mg/dL (3.1-7.8); eGFR > 60 See Note
[2025-05-07 12:47] LABS: Magnesium 5.9 mg/dL (1.6-2.6)
[2025-05-07 18:48] LABS: Basophils # (Auto) 0.0 Thou/mm3 (0.0-0.2); Basophils % (Auto) 1 % (0-2.5); Eosinophils # (Auto) 0.1 Thou/mm3 (0.0-0.5); Eosinophils % (Auto) 1 % (0-10); Hematocrit 30.8 % (36.0-46.0); Hemoglobin 10.3 g/dL (12.0-16.0); Immature Granulocytes Auto 0.04 Thou/mm3 (0.00-0.00); Lymphocytes # (Auto) 1.5 Thou/mm3 (1.0-4.8); Lymphocytes % (Auto) 21 % (10-50); Mean Corpuscular HGB Conc 33.4 g/dl (31.0-37.0); Mean Corpuscular Hemoglobin 31.7 pg (25.0-35.0); Mean Corpuscular Volume 95 fL (80-100); Monocytes # (Auto) 0.5 Thou/mm3 (0.0-0.8); Monocytes % (Auto) 7 % (0-12); Neutrophils # (Auto) 5.1 Thou/mm3 (1.8-7.7); Neutrophils % (Auto) 70 % (37-80); Nucleated Red Blood Cell # 0.00 Thou/mm3 (0.00-0.00); Nucleated Red Blood Cell % 0 /100 WBC (0); Platelet Count 429 Thou/mm3 (140-440); RDW Standard Deviation 52.7 fL (36.4-46.3); Red Blood Count 3.25 Miln/mm3 (4.00-5.20); White Blood Count 7.2 Thou/mm3 (3.6-11.0)
[2025-05-07 19:08] LABS: Alanine Aminotransferase 86 U/L (10-49); Albumin, Serum 4.5 gm/dL (3.5-5.0); Albumin/Globulin Ratio 1.8 (1.2-2.2); Alkaline Phosphatase 116 U/L (46-116); Anion Gap 10 (7-16); Aspartate Amino Transferase 85 U/L (0-34); BUN/Creatinine Ratio 11 Ratio (12-20); Bilirubin,Total 0.3 mg/dL (0.3-1.2); Blood Urea Nitrogen 8 mg/dL (9-23); Calcium 8.1 mg/dL (8.3-10.6); Calcium (Corrected) 8.1 mg/dL (8.5-10.1); Carbon Dioxide 27.5 mMol/L (20.0-31.0); Chloride 102 mMol/L (98-107); Creatinine (Component) 0.7 mg/dL (0.6-1.3); Estimated Creatinine Clearance 136.9 mL/min (>60); Globulin 2.5 gm/dL (2.3-3.5); Glucose 91 mg/dL (74-106); LDH (Lactate Dehydrogenase) 255 U/L (120-246); Magnesium 3.4 mg/dL (1.6-2.6); Osmolality,Calculated 275 (275-295); Potassium 3.9 mMol/L (3.4-5.1); Sodium 139 mMol/L (136-145); Total Protein 7.0 gm/dL (5.7-8.2); Uric Acid 4.8 mg/dL (3.1-7.8); eGFR > 60 See Note
--- NOTE | 2025-05-07 19:44 | PC.NURSE ---
1941, RX. FOR LABETALOL 200MG PO TID CALLED TO [facility]. MESSAGE LEFT ON VOICEMAIL FOR PRESCRIPTION WITH CALL BACK NUMBER IF ANY QUESTIONS.
== END 2025-05-07 23:05 | disposition home or self-care (01) | DRG 776 ==
LOC: SERX 12:24 → SERHOLD 12:51 → S4SX 20:58
PROVIDERS: Nurse Practitioner Family; Admitting Provider Obstetrics & Gynecology; Emergency Provider Emergency Medicine; Visit Provider Obstetrics & Gynecology
DX: O14.05 Mild to moderate pre-eclampsia, complicating the puerperium (principal); O26.63 Liver and biliary tract disorders in the puerperium; K76.0 Fatty (change of) liver, not elsewhere classified
CPT/HCPCS: 36415; 71275; 80053; 81001; 83615; 83735; 84484; 84550; 85025; 85379; 85384; 85610; 85730; 87086; 93005; A4649; J0131; J3475; J7120; Q9967; A9270

== ENCOUNTER 2025-05-24 09:03 | Outpatient (AMB) | payer BC, SELFPAY ==
[2025-05-24 09:29] VITALS: BP 126/84; PULSE 72; RESP 14; TEMP 36.4; O2SAT 98; BMI 35.6
--- NOTE | 2025-05-24 09:29 | AMB.OBPP ---
Vital Signs 05/24/25 09:29 Height 1.65 m Height Method Stated Weight 97.069 kg Weight Measurement Method Standing Scale BMI 35.6 BP 126/84 Blood Pressure Source Automatic Cuff Blood Pressure Location Left Upper Arm Position Sitting Respiration 14 Pulse 72 Pulse Source Monitor Temp 97.6 F Temp Source Oral Pulse Oximetry (%) 98 Oxygen Delivery Method Room Air Allergies/Home Meds Allergies & Medications Allergies No Known Allergies Allergy (Verified 05/24/25 09:30) Medication Reconciliation vits no.130-ferrous fum 27 mg iron-folic acid 800 mcg tablet ( Vitamin) 1 tab PO QDAY 05/06/25 [History Confirmed 05/24/25] labetalol 200 mg tablet 200 mg PO BID #90 tabs 05/07/25 [Rx Confirmed 05/24/25] Intake Visit Data Collection New Patient or Established: Established Patient (seen at [facility] within 3 years) Reason for Visit:: Seen by Clinical Staff ONLY (RN/MA): No 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 no meds.), No Hx Cancer, Yes Hx Blood Disorders, Yes Hx Anemia (during high school), Yes Hx Gastrointestinal Disorders, No Hx Renal Disease, No Hx Diabetes Mellitus Type 1 and No Hx Diabetes Mellitus Type 2 Questionnaires Covid-19 Vaccine Questionnaire Has patient been vacinated for Covid-19 Have you been vacinated for Covid-19: Yes Social History Living Situation History Lives With: Family Housing: Condominium Housing Other:: The patient works as an at an [employer] program. FOB present Tobacco History Smoking Status: Never smoker Second Hand Smoke Exposure: No Alcohol History Alcohol Intake: Never Domestic Abuse History Do You Feel Safe at Home: Yes EPDS - PP Depression Screening Bennett Pospartum Depression Screen I have been able to laugh and see the funny side of things: (0) As much as I always could I have looked forward with enjoyment to things: (0) As much as I ever did I have blamed myself unnecessarily when things went wrong: (0) No, never I have been anxious or worried for no good reason: (0) No, not at all I have felt scared or panicky for no very good reason: (0) No, not at all Things have been getting on top of me: (0) No, I have been coping as well as ever I have been so unhappy that I have had difficulty sleeping: (0) No, not at all I have felt sad or miserable: (0) No, not at all I have been so unhappy that I have been crying: (0) No, never The thought of harming myself has occurred to me: (0) Never EPDS completed yes HPI Interval History: Kasandra Flores is a patient who delivered on April 30 and presents for follow-up regarding her blood pressure management and preeclampsia-related symptoms. The patient reports that her home blood pressure readings have been below the threshold she was given, prompting her to discontinue labetalol for the past 7 days. She notes that her blood pressure was elevated during today's visit but had been consistently good at home without medication. She continues to experience headaches occasionally and reports new symptoms of tingling that began after starting the labetalol medication. The patient expresses concern about stopping the medication cold and inquires about the persistence of her symptoms. The patient completed her 24-hour magnesium sulfate course following delivery and has been monitoring her blood pressure at home with specific thresholds of 160 systolic and 110 diastolic as parameters for concern. She has a recent delivery on April 30, 2025, with complicated by preeclampsia. The patient received magnesium sulfate for 24 hours and has higher risk noted for preeclampsia in future pregnancies. The patient has been taking labetalol, which was discontinued 7 days ago due to blood pressure being below threshold and may have caused tingling symptoms and headaches during transition. She also takes Tylenol as needed for headaches. ROS: Neurological: Positive for headaches and tingling sensations. Was or delivery considered high risk: Yes Exam General General Appearance: alert, in no apparent distress and healthy appearing Head Head exam: atraumatic Neck Neck exam: Present normal inspection and trachea midline Chest Chest inspection: Present normal inspection and symmetric chest wall rise External exam: Present normal external exam; Absent tenderness Neuro Neurological exam: Present oriented X3 Psych Psychiatric exam: Present normal affect and normal mood Office Procedures OBC Clinic LOC & Office Proc's Nursing/Assessment Patient Status: Established Patient OB Clinic Nursing Assessment: Medication Reconciliation, Update PMH in EMR and Vital Signs OB Clinic Coordination of Care: Complex Care and Chronic Disease 1-5, Consent,records obtained, informed consent, Education Simp Pt/Fam, 1 Ins Authorization, Lab and Imaging orders, Results/Orders obtained and Staff clarify orders Established Patient Charge Established Patient Point Assignment: 120 Established Patient Point Charge: EP Level 4 (120-155) Assessment & Plan Diagnosis / Problem List (1) Elevated liver enzymes: Status: Acute (2) Preeclampsia in period: Status: Acute Plan Preeclampsia Management: - Patient is approximately 3 weeks following delivery on April 30 with history of preeclampsia. - Home blood pressure readings below treatment threshold for 7 days, indicating improved blood pressure control. - Received 24 hours of magnesium sulfate after delivery, which significantly reduces ongoing preeclampsia risk. - Blood pressure measured in clinic today was above threshold but patient considered out of high-risk zone. - Ongoing headaches attributed to third-spacing of fluid causing increased intracranial pressure, expected to resolve over 12 weeks. - Some symptoms including tingling may be medication-related side effects from labetalol. Plan: - Discontinue labetalol immediately (cold turkey cessation as standard practice). - Monitor blood pressure at home with threshold of 160 systolic/110 diastolic for calling clinic. - Manage headaches with Tylenol and rest. - Watch sodium intake. - No activity restrictions, resume normal activities. - Laboratory studies ordered for 2 months post-delivery (around June 30) to ensure normalization. - Telephone appointment scheduled for June 27 at 8:30 AM for lab result review. - Labs can be drawn at [facility] or any lab facility between June 25-.
== END 2025-05-24 09:49 | disposition home or self-care (01) ==
LOC: HODSOBC 09:03
PROVIDERS: Supervising Provider Obstetrics & Gynecology; Visit Provider Obstetrics & Gynecology
DX: O14.95 Unspecified pre-eclampsia, complicating the puerperium (principal); O90.89 Other complications of the puerperium, not elsewhere classified; R74.8 Abnormal levels of other serum enzymes
CPT/HCPCS: 99214; G0463

== ENCOUNTER 2025-06-08 14:21 | Outpatient (AMBR) | payer BC, SELFPAY ==
--- NOTE | 2025-06-09 15:52 | LACNOTE_ITS ---
Assessment Alternative Milk Expression Alternative Milk Expression Alternative Method Used: Yes Method Used: Pumping Alternative Method Comment: mom has been using the [employer] hands free pumping unit, states that she gets about 1-2 ounces combine both breasts. she states that she is pumping several times in a 24 hour period, but does try to put baby to breast as well. this is not consistent and baby does not stay on very long because he is used to getting bottle fed and getting 2 ounces over his belly size at each feed. so a total of 4 ounces at each feed. For his weight, age and amount of feeds in 24 hours he should be getting 2.3 ounces. Alternative Method Used Reason: Poor Feeding Alternative Method Produced Milk / Colostrum: Yes Production Amount: 2 Production ounces or mls: ounces Pump Used: Electric Pumping Frequency Per Day: 4 Pumping Frequency Comment: reiterated the need for mom to pump on a regular schedule, if baby was not going to breast, then she needed to be pumping, every 2-3 hours for 20-30 minutes double, including at night. mom understood LAC Assessment Breast Feeding Assessment Date of : 04/27/25 Current Age of baby: 6 (weeks) Current weight of baby: 5159.613 g # of Stool voids in last 24 hrs: 3 Stool Size: Large Color of Stools: brown [place] # of Urine voids in last 24 hrs: 6 Color of Urine: yellow Breast Feeding Ability: Fair [place] Complications: Difficult Latch Complications Comment: baby has had oral tissue tethers, he had release done today by Dr. Jessica in [place], he was diagnosed with tongue tie, lip tie and buccal pad ties. [place] Activity Level: Crying Muscle Tone: With In Normal Limits [place] Jaw: Receding Breast Feeding Comment: baby did not breastfed, mom had given baby 4 ounces of milk prior to office visit. baby was also fussy from procedures and tired. LAC Intervention Interventions Tools: Nipple Shield and Pump Nipple Shield Size: Medium Techniques Discussed: Latch and Pumping Discharge Follow Up Appointment Date and Time: June 15 at 2 pm Other Referral Made: No Feeding Preference at Discharge: Breast Milk and Formula OP DC Assessment Discharge Follow Up Appointment Date and Time: June 15 at 2 pm Other Referral Made: No Visit Complete?: Yes
== END 2025-07-06 23:59 | disposition home or self-care (01) ==
LOC: HODLAC 14:21
DX: Z39.1 Encounter for care and examination of lactating mother (principal)

== ENCOUNTER 2025-06-15 14:05 | Outpatient (AMBR) | payer BC, SELFPAY ==
--- NOTE | 2025-06-15 16:57 | LAC.VISIT ---
Assessment Alternative Milk Expression Alternative Milk Expression Alternative Method Used: Yes Method Used: Pumping Alternative Method Comment: Mom using [employer]issa electric pump most of the time although she will sometimes use [employer] when she has to be hands free. She feels that she is seeing a small increase in her milk but not a noticable difference. She states that she is trying to pump at night but has only been able to do that occasionally. As her isn't around to help she is doing all the feeds by breast and then bottle then pumping. which is all very time consuming. Alternative Method Used Reason: Stimulation Alternative Method Produced Milk / Colostrum: Yes Production Amount: 2 Production ounces or mls: ounces Pump Used: Electric Pumping Frequency Per Day: 6 Pumping Frequency Comment: explained that it is a supply and demand and she needs to either put baby to breast for the entire feed or pump to ensure that her breast are being emptied to assure refill. Mom understood. LAC Assessment Breast Feeding Assessment Date of : 03/25/25 Current Age of baby: 10 (weeks) Current weight of baby: 5244.662 g Breast Feeding Ability: Fair [place] Complications Comment: watched baby nurse for 15 mintues, he did very well. although we had to latch him several times before he got good latch without hurting mom. he is also still clamping down at times. explained to mom that this is normal after a tie release because babys digress a little but will eventually continue to do better. Mom also states they will be visiting the chiropractor to help with tension in neck and body. [place] Activity Level: Awake / Alert, Rooting and Crying Muscle Tone: Tense [place] Suck Quality: Areolar Compression and Rhythmic Effective [place] Suck: Yes Swallow: Audible and Observed [place] Jaw: Clentched Lip Seal: Good Feeding Posistion: Cross Cradle Additional Latch or Posistion Assistance Needed: Moderate Breast Feeding Comment: showed mom cross cradle to get a deeper latch and then to cradle hold after. baby is very stiff and tense and this hold helped her achieve a better latch Pre Weight (before feeding): 5244.662 g Post Weight (post feeding): 5273.011 g % gained or lost: 1% Gain LAC Intervention Discharge Follow Up Appointment Date and Time: June 22 at 2 pm Other Referral Made: No Feeding Preference at Discharge: Breast Milk and Formula OP DC Assessment Discharge Follow Up Appointment Date and Time: June 22 at 2 pm Other Referral Made: No Visit Complete?: Yes
== END 2025-07-06 23:59 | disposition home or self-care (01) ==
LOC: HODLAC 14:05
DX: Z39.1 Encounter for care and examination of lactating mother (principal)

== ENCOUNTER 2025-06-27 08:22 | Outpatient (AMB) | payer BC, SELFPAY ==
--- NOTE | 2025-06-27 08:27 | AMB.GYNCLNOT ---
Allergies/Home Meds Allergies & Medications Allergies No Known Allergies Allergy (Verified 06/27/25 08:27) Medication Reconciliation vits no.130-ferrous fum 27 mg iron-folic acid 800 mcg tablet ( Vitamin) 1 tab PO QDAY 05/06/25 [History Confirmed 06/27/25] labetalol 200 mg tablet 200 mg PO BID #90 tabs 05/07/25 [Rx Confirmed 06/27/25] Intake Visit Data Collection New Patient or Established: Established Patient (seen at [facility] within 3 years) Reason for Visit:: DISCUSS LAB RESULTS Consent obtained for Telemed Visit: Yes Seen by Clinical Staff ONLY (RN/MA): No Car Parker Required: No Do You Feel Safe at Home: Yes Authorities Contacted: N/A PCP or OBGYN visit in last 3 months: Yes Hx Now: No Are you currently on any form of Control: No Last menstrual period: 07/28/24 Pain Present Currently: No Pain Scale Used: Julio-Boswell/Numerical Pain scale:: 0 Smoking Status Smoking Status: Never smoker Immunizations Flu Vaccine in the Last 12 Months: Yes Flu Vaccine Exclusion Criteria: Already Received For Telemed visit only Telemed Video/Phone Visit: Yes Verbal consent obtained for Telemed visit?: Yes Verbal Consent witness name: ANURAG KRAUSEIERREZ [employer]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 no meds.), No Hx Cancer, Yes Hx Blood Disorders, Yes Hx Anemia (during high school), Yes Hx Gastrointestinal Disorders, No Hx Renal Disease, No Hx Diabetes Mellitus Type 1 and No Hx Diabetes Mellitus Type 2 Questionnaires Covid-19 Vaccine Questionnaire Has patient been vacinated for Covid-19 Have you been vacinated for Covid-19: Yes PHQ-9 PHQ-2 Over the last 2 weeks, how often have you been bothered by any of the following problems? 1. Little interest or pleasure in doing things: not at all 2. Feeling down, depressed, or hopeless: not at all Total score: 0 PHQ-9 3. Trouble falling or staying asleep, or sleeping too much: Not at all 4. Feeling tired or having little energy: Not at all 5. Poor appetite or overeating: Not at all 6. Feeling bad about yourself - or that you are a failure or have let yourself or your family down: Not at all 7. Trouble concentrating on things, such as reading the newspaper or watching television: Not at all 8. Moving or speaking so slowly that other people could have noticed? - Or the opposite - being so fidgety or restless that you have been moving around a lot more than usual: not at all 9. Thoughts that you would be better off or of hurting yourself in some way: Not at all Total score: 0 Source: Developed by Drs. Jose Rodríguez, Morena Pappas, David Bess and colleagues, with an educational gaudencio from [employer]. 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 FOB present Tobacco History Smoking Status: Never smoker Second Hand Smoke Exposure: No Alcohol History Alcohol Intake: Never Domestic Abuse History Do You Feel Safe at Home: Yes History of Present Illness HPI Narrative Kasandra Flores is a patient with a history of preeclampsia who presents for follow-up televisit regarding lab results and ongoing symptoms. The patient reports experiencing right upper quadrant pain under her ribs that occurs approximately every other day. She describes the pain as occurring more frequently on an empty stomach when she has not eaten or had water. This symptom has been persistent and occurs in the absence of elevated blood pressure. Additionally, the patient reports worsening vision since developing preeclampsia. She states that while she never had the best vision, she has noticed a difference in the way she sees things and wonders if it could be astigmatism. She describes this as a noticeable deterioration from her baseline visual acuity. The patient inquires about her risk for developing high blood pressure again and asks about restrictions regarding massage therapy, which she had wanted to pursue for -related soreness but had read was not advisable during her preeclampsia episode. She has a recent delivery complicated by preeclampsia and is currently in the period. The patient experienced blood loss during delivery. ROS: HEENT: Positive for vision changes with worsened visual acuity. Gastrointestinal: Positive for right upper quadrant pain occurring every other day, more prominent on empty stomach. Office Procedures [facility] LOC & Office Proc's Nursing/Assessment Patient Status: Established Patient OB Clinic Nursing Assessment: Medication Reconciliation, Update PMH in EMR and Vital Signs OB Clinic Coordination of Care: Complex Care and Chronic Disease 1-5, Consent,records obtained, informed consent, Education Simp Pt/Fam, Results/Orders obtained and Staff clarify orders Established Patient Charge Established Patient Point Assignment: 90 Telehealth If patient is seen using Teleconference methods, complete New/Est section, but DO NOT beatriz points only beatriz the correct Telemed visit type Telemed Phone/Video with patient at home & Dr,PA,DIRECTOR OF WORKFORCE DEVELOPMENT: Yes Assessment & Plan Diagnosis / Problem List (1) Calculus of gallbladder without cholecystitis without obstruction: Status: Acute (2) Unspecified visual disturbance: Status: Acute (3) Eclampsia complicating , third trimester: Status: Acute Plan Right Upper Quadrant Pain: - patient with right upper quadrant pain occurring every other day, primarily on empty stomach. - Pain occurring in absence of elevated blood pressure, making preeclampsia-related etiology unlikely. - Gallbladder pathology including gallstones suspected given location and timing of symptoms. Plan: - Order abdominal ultrasound to evaluate gallbladder. - Insurance authorization required before scheduling. - Patient will be contacted once authorization obtained. - If gallstones identified, will notify [facility] for general surgery referral. Visual Changes : - Patient reports worsening vision since developing preeclampsia, noting difference in how she sees things. - Visual symptoms not related to preeclampsia process when blood pressure not elevated. Plan: - Requires comprehensive eye examination. - Visual changes need independent evaluation unrelated to preeclampsia history. Preeclampsia Recovery: - Recent laboratory results show ALT of 44 (upper limit 32), mildly elevated but not concerning for preeclampsia recurrence. - Elevated lymphocyte count at 3.4 expected due to immune system recovery after delivery. - Patient remains at risk for preeclampsia recurrence for up to 3 months postdelivery. Plan: - Continue monitoring for preeclampsia symptoms: blood pressure >140/90 with headache, visual floaters, or right upper quadrant pain. - Avoid massage therapy for at least 3 months due to risk of vagal nerve reaction and blood pressure elevation. - Maintain high-protein diet, regular meals, and adequate hydration. - Lymphocyte elevation expected to normalize within one month. - Patient will be contacted by clinic once insurance authorization obtained for ultrasound scheduling.
== END 2025-06-27 09:09 | disposition home or self-care (01) ==
PROVIDERS: Supervising Provider Obstetrics & Gynecology; Visit Provider Obstetrics & Gynecology
DX: O99.63 Diseases of the digestive system complicating the puerperium (principal); K80.20 Calculus of gallbladder without cholecystitis without obstruction; O90.89 Other complications of the puerperium, not elsewhere classified; H53.9 Unspecified visual disturbance; O15.2 Eclampsia complicating the puerperium
CPT/HCPCS: 99212; G0463